=== PATIENT | male | born 1940 | race Caucasian/White ===

== ENCOUNTER 2016-08-09 04:17 | Emergency (ER) | payer MEDICARE ==
[2016-08-09] MEDS ORDERED: ASPIRIN 325 MG TABLET PO ONE (04:27)
[2016-08-09] MEDS ORDERED: MORPHINE SULFATE 5 MG/ML PFS IVP ONE ×3 (04:31→07:13)
--- NOTE | 2016-08-09 04:31 | Emergency Department Record ---
History of Present Illness - General Chief Complaint: Chest Pain Stated Complaint: CHEST PAIN/SOB Time Seen by Provider: 08/09/16 04:25 Source: Patient, Family - History of Present Illness Initial Comments: The patient states he had a pain in his right lower chest last evening around 10:30 p.m. which wasn't very bad. He took tylenol and went to bed. Around 4 a.m. he awakened with worsened pain and was having shortness of breath. He has esophageal cancer, had been getting chemotherapy which was stopped 3 months ago. His reports that they have found 2 more nodules on his lungs for which they will be seeing a lung doctor in the near future. He states the pain worsens with deep breathing. MD Complaint: Chest pain - Related Data Home Medications Medication Instructions Recorded Confirmed Last Taken Cholecalciferol (Vitamin D3) 6,000 unit PO DAILY 08/25/14 08/09/16 02/21/15 [Vitamin D3] Omeprazole [Prilosec] 40 mg PO DAILY 08/25/14 08/09/16 02/11/16 Warfarin Sodium [Coumadin] 5 mg PO QHS 08/25/14 08/09/16 02/10/16 Magnesium Oxide [Mag Ox] 400 mg PO DAILY 01/19/15 08/09/16 02/11/16 Albuterol Sulfate 0.083% [Neb] 3 ml NEB .EVERY 4-6 HOURS PRN 01/25/15 08/09/16 02/21/15 Budesonide/Formoterol Fumarate 6 gm IH DAILY 01/25/15 08/09/16 02/21/15 [Symbicort 160-4.5 Mcg Inhaler] Digoxin [Digox] 250 mcg PO DAILY 01/25/15 08/09/16 02/11/16 Prednisone [Prednisone] 5 mg PO DAILY 03/16/15 08/09/16 02/11/16 Fludrocortisone Acetate 0.1 mg PO DAILY 10/12/15 08/09/16 02/11/16 Polyethylene Glycol 3350 [Miralax] 17 gm PO QAM PRN 10/12/15 08/09/16 02/10/16 Pantoprazole Sodium [Protonix] 40 mg PO DAILY 08/09/16 08/09/16 Unknown Allergies Allergy/AdvReac Type Severity Reaction Status Date / Time No Known Drug Allergies Allergy Verified 02/11/16 10:17 Review of Systems Reviewed: No additional complaints except as noted below Constitutional: Reports: As per HPI. Denies: Chills, Fever, Malaise, Night sweats, Weakness, Weight change Eyes: Reports: As per HPI. Denies: Eye discharge, Eye pain, Photophobia, Vision change ENT: Reports: As per HPI. Denies: Congestion, Dental pain, Ear pain, Epistaxis , Hearing loss, Throat pain Respiratory: Reports: As per HPI. Denies: Cough, Dyspnea, Hemoptysis, Stridor, Wheezes Cardiovascular: Reports: As per HPI. Denies: Arrhythmia, Chest pain, Dyspnea on exertion, Edema, Murmurs, Orthopnea, Palpitations, Paroxysmal nocturnal dyspnea, Rheumatic Fever, Syncope Endocrine: Reports: As per HPI. Denies: Fatigue, Heat or cold intolerance, Polydipsia, Polyuria Gastrointestinal: Reports: As per HPI. Denies: Abdominal pain, Constipation, Diarrhea, Hematemesis, Hematochezia, Melena, Nausea, Vomiting Genitourinary: Reports: As per HPI. Denies: Dysuria, Frequency, Hematuria, Incontinence, Retention, Testicular pain, Testicular mass, Urgency Musculoskeletal: Reports: As per HPI. Denies: Arthralgia, Back pain, Gout, Joint swelling, Myalgia, Neck pain Skin: Reports: As per HPI. Denies: Bruising, Change in color, Change in hair/ nails, Lesions, Pruritus, Rash Neurological: Reports: As per HPI. Denies: Abnormal gait, Confusion, Headache, Numbness, Paresthesias, Seizure, Tingling, Tremors, Vertigo, Weakness Psychiatric: Reports: As per HPI. Denies: Anxiety, Auditory hallucinations, Depression, Homicidal thoughts, Suicidal thoughts, Visual hallucinations Hematological/Lymphatic: Reports: As per HPI. Denies: Anemia, Blood Clots, Easy bleeding, Easy bruising, Swollen glands Past Medical History - SOCIAL HISTORY Smoking Status: Former smoker - RESPIRATORY Hx Respiratory Disorders: Yes Hx Bronchitis: Yes Hx COPD: Yes Hx Dyspnea: Yes Hx Sleep Apnea: No Hx of CPAP: No Comment:: fluid "pocket" on base of left lung - CARDIOVASCULAR Hx Cardio Disorders: Yes Hx Irregular Heartbeat: Yes (afib) Comment:: A-Fib-no problems for several yrs - NEURO Hx Neuro Disorders: No - GI Hx GI Disorders: Yes Hx Abdominal Pain: Yes Hx Reflux: Yes Hx Obstructive Bowel: Yes Hx Wt Loss/Wt Gain: Yes (loss of 140#'s in 3 yrs) Hx of Polyps: Yes Comment:: esophagectomy/weight loss due to chemo - Hx Genitourinary Disorders: Yes Hx Kidney Stones: Yes Hx Prostate Problems: Yes (BPH) - ENDOCRINE Hx Endocrine Disorders: No Hx Diabetes: No - MUSCULOSKELETAL Hx Musculoskeletal Disorders: Yes Hx Arthritis: Yes - PSYCH Hx Psych Problems: No - HEMATOLOGY/ONCOLOGY Hx Hematology/Oncology Disorders: Yes Hx Bruising: Yes (d/t coumadin) 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) Hx Chemotherapy: Yes (None since Feb, 2016) Hx Radiation Therapy: Yes (Ended Apr 2014) Hx Blood Transfusions: Yes Hx Blood Transfusion Reaction: Yes Family Medical History Hx Cancer: Mother Hx Heart Disease: Father, Mother Hx Stroke: Mother Physical Exam - General General Appearance: Alert, Oriented x3, Cooperative, Moderate distress, Other ( cachectic) - Head Head exam: Normal inspection - Eye Eye exam: Normal appearance, PERRL Pupils: Normal accommodation - ENT ENT exam: Normal exam, Mucous membranes moist, Normal external ear exam, Normal orophraynx, TM's normal bilaterally Ear exam: Normal external inspection. negative: External canal tenderness Nasal Exam: Normal inspection. negative: Discharge, Sinus tenderness Mouth exam: Normal external inspection, Tongue normal Teeth exam: Normal inspection. negative: Dental caries Throat exam: Normal inspection. negative: Tonsillar erythema, Tonsillar exudate - Neck Neck exam: Normal inspection, Full ROM. negative: Tenderness - Respiratory Respiratory exam: Normal lung sounds bilaterally, Chest wall tenderness (tender on palpation over lost lateral lowest rib right side and into RUQ abdomen laterally). negative: Respiratory distress - Cardiovascular Cardiovascular Exam: Regular rate, Normal rhythm, Normal heart sounds - GI/Abdominal GI/Abdominal exam: Soft, Normal bowel sounds. negative: Tenderness - Rectal Rectal exam: Deferred - exam: Deferred - Extremities Extremities exam: Normal inspection, Full ROM, Normal capillary refill. negative: Tenderness - Back Back exam: Reports: Normal inspection, Full ROM. Denies: Muscle spasm, Rash noted, Tenderness - Neurological Neurological exam: Alert, Normal gait, Oriented X3, Reflexes normal - Psychiatric Psychiatric exam: Normal affect, Normal mood - Skin Skin exam: Dry, Intact, Normal color, Warm Course - Reevaluation(s) Reevaluation #1: His reports that he had a PET scan on 07-23-16 which showed new lesions on his liver. He had an appointment with his Oncologist Dr. Reeves on 08-03-16 to discuss options of restarting his chemotherapy which he had not had for the past 3 months. [facility] with Dr. Abarca and Dr. Reeves. 08/09/16 04:48 08/09/16 06:52 Reevaluation #2: Morphine is helping take the edge of his right sided chest pain. 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 08/09/16 05:24 Reevaluation #3: Patient returned from cat scan. Second dose of morphine is helping him much more and he is now able to relax more and try to sleep while results are pending. He is now nauseated. Zofran ordered. 08/09/16 06:11 Reevaluation #4: FRANCY Keen at [facility] who accepts patient in transfer for direct admit. Awaiting bed number and completion of transfer. 08/09/16 07:02 Medical Decision Making - Management Options MDM Management: Additional Work-up Planned (e.g. ADM/Transfer/OP Study) ( Transfer to [facility] for direct admit.) - Data Complexity MDM Data: Labs Ordered and/or Reviewed, X-Ray Ordered and/or Reviewed (CTA Chest : No PE. No thoracic aortic aneruysm. Bihilar mediastinal lymphadenopathy and multiple pulmonary nodules in both lungs, consistent with malignancy. Portal vein thrombus without evidence of a complicating process at present. Mild left pleural effusion.), EKG Ordered and/or Reviewed - Lab Data Result diagrams: 08/09/16 04:30 08/09/16 04:30 - EKG Data -: EKG Interpreted by Mo EKG: No Acute Changes (Inferior lateral lead ST-T changes which are not new from 11-29-15) Disposition Disposition: Transfer Clinical Impression: Metastasis from esophageal cancer Atrial fibrillation Qualifiers: Atrial fibrillation type: chronic Qualified Code(s): I48.2 - Chronic atrial fibrillation Disposition: Acute Care Hospital Transfer Decision to Admit: Admit from ER Decision to Admit Date: 08/09/16 Decision to Admit Time: 07:05 [facility] Reason For Transfer: portal thrombus; metastatic esophageal cancer Accepting Physician: Dr. Keen Time Discussed w/Accepting Physician: 07:06 Condition: (2) Stable Forms: Patient Portal Access
[2016-08-09] MEDS ORDERED: ASPIRIN 81 MG CHEWABLE TABLET PO ONE (04:33)
[2016-08-09 04:45] LABS: HEMOGLOBIN 13.6 gm/dl (14.0-18.0); MEAN CELL VOLUME 99.3 fl (81-97); MEAN CORPUSCULAR HEMOGLOBIN 33.7 pg (27-33); MEAN PLATELET VOLUME 8.7 fl (7.4-10.4); PLATELET COUNT 202 K/uL (130-400); RED BLOOD COUNT 4.03 M/uL (4.40-5.70); RED CELL DISTRIBUTION WIDTH 13.4 % (11.5-14.5)
[2016-08-09 04:56] LABS: PARTIAL THROMBOPLASTIN TIME 35.2 SECONDS (24.5-39.1)
[2016-08-09 05:03] LABS: ANION GAP 12.2 (7-16); BLOOD UREA NITROGEN 20 mg/dL (9-20); CARBON DIOXIDE 31.8 mmol/L (22-30); CREATININE 0.9 mg/dL (0.66-1.25); D-DIMER 1.01 mg/L FEU (0-0.59); EST GLOMERULAR FILTRATION RATE > 60 ml/min; GLUCOSE,RANDOM 115 mg/dL (70-110)
[2016-08-09 05:11] LABS: CREATINE PHOSPHOKINASE < 20 U/L (55-170)
[2016-08-09 05:15] LABS: CKMB 0.7 ug/L (0-6); TROPONIN I 0.033 ng/mL (0.00-0.034)
[2016-08-09] MEDS ORDERED: ONDANSETRON HCL IV 4 MG/2 ML VIAL IVP ONE ×2 (06:12→07:46)
[2016-08-09 06:45] LABS: INR 1.26; PROTHROMBIN TIME (PATIENT) 14.2 SECONDS (9.5-12.1)
[2016-08-09] MEDS ORDERED: HEPARIN SODIUM 1000 UNIT/1 ML 10ML VIAL IVP ONE (07:13)
[2016-08-09] MEDS ORDERED: PROMETHAZINE HCL 25 MG/ML VIAL IV ONE (08:30)
--- NOTE | 2016-08-13 09:44 | CT ANGIOGRAM REPORT ---
EXAM: CTA OF THE CHEST WITH CONTRAST HISTORY: ELEVATED D-DIMER, CHEST PAIN, RIGHT RIB AND SHOULDER PAIN. TECHNIQUE: Routine CT angiography images of the chest were obtained following intravenous administration of 100 ml of Omnipaque 350. 3D/MIP images were obtained for further assessment. Comparison: 10/12/15. FINDINGS: There are no central filling defects in the pulmonary arteries to suggest PE. There is ectasia of the ascending aorta measuring 4.0 x 4.0 cm on this non-gated examination. The aorta enhances normally with contrast. Calcified and noncalcified atherosclerotic plaque present. Mild tortuosity. There is a left chest port catheter in place. There is interval enlargement of bilateral hilar lymph nodes measuring 4.0 x 2.3 cm on the right and 2.9 x 2.9 cm on the left. This compares to 1.6 x 0.9 cm and 1.1 x 0.9 cm on previous examination. There is also interval enlargement of a left periesophageal lymph node measuring 2.7 x 2.9 cm today compared to 1.0 x 1.3 cm by my measurement on previous exam. This is consistent with disease progression in this patient with history of esophageal cancer. The patient has undergone previous gastric pull through procedure. The lungs demonstrate mild paraseptal emphysematous change. There is a similar small left pleural effusion. Today compared to 3 mm on previous examination. Interval enlarged nodule within the right lower lobe measuring 10 mm not clearly seen on previous examination. Other interval enlarged nodules are present within both lungs elsewhere. There is interval improved air space disease within the right lung. There is now a hypodense lesion within the posterior segment right lobe of the liver measuring 4.2 x 4.0 cm in size consistent with a metastatic lesion not seen previous examination. Other smaller lesions are present elsewhere within the liver consistent with disease progression. Note is now made of portal venous thrombus. Thrombus appears to extend into the superior mesenteric vein as well. No clearly acute osseous abnormality. IMPRESSION: 1. NO EVIDENCE OF PULMONARY EMBOLUS. 2. THERE IS INTERVAL DISEASE PROGRESSION IN THIS PATIENT WITH HISTORY OF ESOPHAGEAL CANCER. THERE ARE ENLARGED LYMPH NODES WITHIN THE HILUM AND MEDIASTINUM. INTERVAL INCREASED METASTATIC LESIONS WITHIN BOTH LUNGS. INTERVAL INCREASED/DEVELOPMENT OF HEPATIC METASTATIC DISEASE. 3. STABLE LEFT PLEURAL EFFUSION. 4. STABLE BILATERAL RENAL CYSTS. JOB NUMBER: [id number] [facility]
== END 2016-08-09 08:50 | disposition short-term general hospital (02) ==
LOC: ER 04:17
DX: I48.2 Chronic atrial fibrillation (principal); I81 Portal vein thrombosis; R06.02 Shortness of breath; R10.11 Right upper quadrant pain; J44.9 Chronic obstructive pulmonary disease, unspecified; C15.9 Malignant neoplasm of esophagus, unspecified; C78.7 Secondary malignant neoplasm of liver and intrahepatic bile duct; C78.02 Secondary malignant neoplasm of left lung; C78.01 Secondary malignant neoplasm of right lung; R64 Cachexia
CPT/HCPCS: 99285 ×2; 96376; 96374; 96375; 82550; 85730; 85610; 82553; 84484; 80048; 80162; 85379; 85027; 83880; 71275; 93005; 93010; Q9967; J2405; J2270; J2550

== ENCOUNTER 2016-11-23 15:02 | Observation (INO) | payer MEDICARE ==
[2016-11-23] MEDS ORDERED: HYDROMORPHONE HCL 1 MG/ML CPJ IVP ONE (15:34)
[2016-11-23] MEDS ORDERED: ONDANSETRON HCL IV 4 MG/2 ML VIAL IVP ONE ×2 (15:34→17:45)
--- NOTE | 2016-11-23 15:35 | Emergency Department Record ---
History of Present Illness - General Chief Complaint: Fall Injury Stated Complaint: FALL/HEAD INJURY Time Seen by Provider: 11/23/16 15:29 Source: Patient Mode of Arrival: EMS Limitations: No limitations - History of Present Illness Initial Comments: The patient is here due to injuring his back an hour ago. He was bending over pruning some shrubs and felt a very sharp stabbing pain in his back that made him fall. He then fell forward and bumped his head on a metal cart he was using. There was no LOC but the pain in his back was and is very severe. There is no pain radiating down the legs and no leg weakness. He also did not have any incontinence. The patient is on Coumadin. MD Complaint: Fall Onset/Timin -: Minutes(s) Fall From: Standing When Fall Occurred: Just prior to arrival Fall Witnessed: No Place Fall Occurred: Home Loss of Consciousness: None Prolonged Down Time?: No Symptoms Prior to Fall: Other Location: Head Severity: Severe Severity scale (1-10): >10 Quality: Burning Context: Other Associated Symptoms: Other - [place]y Coma Scale Eye Response: (4) Open spontaneously Motor Response: (6) Obeys commands Verbal Response: (5) Oriented [place] Total: 15 - Related Data Home Medications Medication Instructions Recorded Confirmed Last Taken Cholecalciferol (Vitamin D3) 6,000 unit PO DAILY 08/25/14 08/09/16 11/23/16 [Vitamin D3] 0800 Omeprazole [Prilosec] 40 mg PO DAILY 08/25/14 08/09/16 11/23/16 0800 Warfarin Sodium [Coumadin] 5 mg PO QHS 08/25/14 08/09/16 1 Day Ago ~11/22/16 2200 Magnesium Oxide [Mag Ox] 400 mg PO DAILY 01/19/15 08/09/16 11/23/16 0800 Albuterol Sulfate 0.083% [Neb] 3 ml NEB .EVERY 4-6 HOURS PRN 01/25/15 08/09/16 11/23/16 0800 Budesonide/Formoterol Fumarate 6 gm IH DAILY 01/25/15 08/09/16 11/23/16 [Symbicort 160-4.5 Mcg Inhaler] 0800 Digoxin [Digox] 250 mcg PO DAILY 01/25/15 08/09/16 11/23/16 0800 Prednisone [Prednisone] 15 mg PO DAILY 03/16/15 08/09/16 11/23/16 0800 Fludrocortisone Acetate 0.1 mg PO DAILY 10/12/15 08/09/16 11/23/16 0800 Pantoprazole Sodium [Protonix] 40 mg PO DAILY 11/23/16 11/23/16 11/23/16 0800 Allergies Allergy/AdvReac Type Severity Reaction Status Date / Time No Known Drug Allergies Allergy Verified 02/11/16 10:17 Travel Screening - Travel/Exposure Within Last 30 Days Have you traveled within the last 30 days?: No - Travel/Exposure Within Last Year Have you traveled outside the [place] in the last year?: No - Additonal Travel Details Have you been exposed to anyone with a communicable illness?: No Review of Systems Constitutional: Denies: Chills, Fever Eyes: Denies: Eye discharge ENT: Denies: Congestion Respiratory: Denies: Cough, Dyspnea Past Medical History - SOCIAL HISTORY Smoking Status: Former smoker Alcohol Use: None Drug Use: None - RESPIRATORY Hx Respiratory Disorders: Yes Hx Bronchitis: Yes Hx COPD: Yes Hx Dyspnea: Yes Hx Sleep Apnea: No Hx of CPAP: No Comment:: fluid "pocket" on base of left lung - CARDIOVASCULAR Hx Cardio Disorders: Yes Hx Irregular Heartbeat: Yes (afib) Comment:: A-Fib-no problems for several yrs - NEURO Hx Neuro Disorders: No - GI Hx GI Disorders: Yes Hx Abdominal Pain: Yes Hx Reflux: Yes Hx Obstructive Bowel: Yes Hx Wt Loss/Wt Gain: Yes (loss of 140#'s in 3 yrs) Hx of Polyps: Yes Comment:: esophagectomy/weight loss due to chemo - Hx Genitourinary Disorders: Yes Hx Kidney Stones: Yes Hx Prostate Problems: Yes (BPH) - ENDOCRINE Hx Endocrine Disorders: No Hx Diabetes: No - MUSCULOSKELETAL Hx Musculoskeletal Disorders: Yes Hx Arthritis: Yes - PSYCH Hx Psych Problems: No - HEMATOLOGY/ONCOLOGY Hx Hematology/Oncology Disorders: Yes Hx Bruising: Yes (d/t coumadin) 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) Hx Chemotherapy: Yes (None since Feb, 2016) Hx Radiation Therapy: Yes (Ended Apr 2014) Hx Blood Transfusions: Yes Hx Blood Transfusion Reaction: Yes Family Medical History Any Significant Family History?: Yes Hx Cancer: Mother Hx Heart Disease: Father, Mother Hx Stroke: Mother Physical Exam - General General Appearance: Alert, Oriented x3, Cooperative, No acute distress - Head Head exam: Atraumatic, Normocephalic, Normal inspection - Eye Eye exam: Normal appearance, PERRL - Neck Neck exam: Normal inspection, Full ROM. negative: Tenderness (There is no Cspine tenderness. The patient has full ROM with no pain.) - Respiratory Respiratory exam: Normal lung sounds bilaterally. negative: Respiratory distress - Cardiovascular Cardiovascular Exam: Regular rate, Normal rhythm, Normal heart sounds - GI/Abdominal GI/Abdominal exam: Soft, Normal bowel sounds. negative: Tenderness - Extremities Extremities exam: Normal inspection, Full ROM, Normal capillary refill. negative: Tenderness - Back Back exam: Reports: Normal inspection, Muscle spasm, Paraspinal tenderness (The Lower lumbar area is very tender at the L paraspinal L4-5 area. ). Denies: Vertebral tenderness - Neurological Neurological exam: Alert, Oriented X3, Reflexes normal. negative: Motor sensory deficit Course Vital Signs 11/23/16 15:11 Temperature 98.2 F Pulse Rate 52 L Respiratory 18 Rate Blood Pressure 142/101 Pulse Ox 98 - Reevaluation(s) Reevaluation #1: The patient is doing better at this time. He is resting comfortably and has no pain when not moving. He denies any leg numbness or weakness presently. 11/23/16 16:18 Reevaluation #2: The patient is doing better but still cannot stand up due to the pain. He denies any leg numbness or tingling. 11/23/16 17:22 Reevaluation #3: The patient is doing better but is still unable to ambulate. We did get him up with assistance and he was quite nauseated with his legs weak due to the pain. He almost fell from the back pain at one point. Due to that fact I did recommend hospital admission overnight for pain control. I did discuss the case with Dr. Tuttle and he agrees with the plan. 11/23/16 17:51 Medical Decision Making - Data Complexity MDM Data: Labs Ordered and/or Reviewed, X-Ray Ordered and/or Reviewed - Lab Data Result diagrams: 11/23/16 16:15 11/23/16 16:15 - Radiology Data Radiology results: Report reviewed (Head CT: Neg Lumbar xrays: Neg for any acute bony problems.) Disposition Disposition: Admit Clinical Impression: Lumbar paraspinal muscle spasm Disposition: Still a Patient at [facility] Decision to Admit: Admit from ER Decision to Admit Date: 11/23/16 Decision to Admit Time: 17:53 Accepting Physician: Marry Time Discussed w/Accepting Physician: 17:53 Condition: (2) Stable Forms: Patient Portal Access Time of Disposition: 17:53
[2016-11-23 16:24] LABS: HEMATOCRIT 30.1 % (42.0-52.0); HEMOGLOBIN 9.6 gm/dl (14.0-18.0); MEAN CELL VOLUME 101.7 fl (81-97); MEAN CORPUSCULAR HEMOGLOBIN 32.4 pg (27-33); MEAN CORPUSCULAR HGB CONC 31.9 g/dl (32-36); MEAN PLATELET VOLUME 9.2 fl (7.4-10.4); PLATELET COUNT 209 K/uL (130-400); RED BLOOD COUNT 2.96 M/uL (4.40-5.70); RED CELL DISTRIBUTION WIDTH 16.3 % (11.5-14.5); WHITE BLOOD COUNT W/O DIFF 5.4 K/uL (4.2-12.2)
[2016-11-23 16:34] LABS: ANION GAP 4.2 (7-16); BLOOD UREA NITROGEN 18 mg/dL (9-20); CARBON DIOXIDE 30.8 mmol/L (22-30); CREATININE 0.8 mg/dL (0.66-1.25); EST GLOMERULAR FILTRATION RATE > 60 ml/min; GLUCOSE,RANDOM 128 mg/dL (70-110); INR 2.87; PARTIAL THROMBOPLASTIN TIME 40.1 SECONDS (24.5-39.1); PROTHROMBIN TIME (PATIENT) 32.4 SECONDS (9.5-12.1)
[2016-11-23] MEDS ORDERED: KETOROLAC 30 MG/ML VIAL IVP ONE (16:53)
[2016-11-23] MEDS ORDERED: ACETAMINOPHEN 500 MG TABLET PO PRN (18:21)
[2016-11-23] MEDS ORDERED: ONDANSETRON HCL IV 4 MG/2 ML VIAL IVP PRN (18:21)
[2016-11-23] MEDS ORDERED: ALBUTEROL SULFATE (0.083%) 2.5 MG/3 ML NEB INH PRN (18:21)
[2016-11-23] MEDS: HYDROMORPHONE HCL 1 MG/ML CPJ IVP PRN (21:42)
[2016-11-23] MEDS ORDERED: WARFARIN 5 MG TAB PO SCH (22:00)
[2016-11-24] MEDS ORDERED: HYDROCODONE/APAP 5/325MG TABLET PO PRN (04:07)
[2016-11-24] MEDS: PANTOPRAZOLE SODIUM 40 MG TABLET PO SCH ×2 (05:47→07:43)
[2016-11-24] MEDS: HYDROMORPHONE HCL 1 MG/ML CPJ IVP PRN (05:48)
[2016-11-24 06:25] LABS: INR 2.45; PROTHROMBIN TIME (PATIENT) 27.7 SECONDS (9.5-12.1)
--- NOTE | 2016-11-24 07:22 | CT SCAN REPORT ---
EXAM: HEAD CT HISTORY: TRAUMA, PATIENT FELL BACKWARDS ON THE LAWN HITTING HIS HEAD. TECHNIQUE: Axial CT scan of the head was performed without IV contrast. Comparison: None. Encounter: Initial. FINDINGS: No definite acute intracranial hemorrhage identified. No focal mass effect or midline shift apparent. Mild generalized atrophy. No definite acute infarct or intracranial mass lesion is seen. No depressed calvarial fracture is evident. IMPRESSION: 1. NO DEFINITE ACUTE INTRACRANIAL HEMORRHAGE OR FOCAL MASS EFFECT EVIDENT. 2. MILD GENERALIZED ATROPHY. JOB NUMBER: [id number] [facility]
--- NOTE | 2016-11-24 07:29 | RADIOLOGY REPORT ---
EXAM: LUMBAR SPINE HISTORY: PATIENT DEVELOPED A SHARP PAIN IN HIS LOWER BACK WHILE TRIMMING BUSHES. TECHNIQUE: Seven views of the lumbar spine were obtained. Comparison: No prior lumbar spine series. Encounter: Initial. FINDINGS: There is tilting of the spine to the right which may be due to positioning or spasm. Surgical clips right upper quadrant presumably from cholecystectomy. There is some form of fixation like device overlying the lower left lateral ribs and clinical correlation is suggested. This partially obscures the lumbar spine on the RPO view in particular. Numerous short linear metallic densities overlying the pubic symphysis probably represent radiation seeds in the prostate bed and clinical correlation is suggested. Facet joint arthropathy in the lower lumbar spine in particular. Ballooning of the lower lumbar interspaces probably related to osteoporosis. No definite acute fracture of the lumbar spine identified. If lumbar symptoms persist, however, follow-up MRI of the lumbar spine would be suggested if not contraindicated. Borderline aneurysmal dilatation of the distal abdominal aorta measuring about 3 cm in diameter. There is some mild narrowing of the first and second lumbar interspaces with associated hypertrophic spurring. IMPRESSION: 1. OSTEOPOROSIS WITH BALLOONING OF THE LOWER LUMBAR INTERSPACES. 2. DEGENERATIVE CHANGES PARTICULARLY IN THE LOWER LUMBAR FACETS AND MILD NARROWING OF THE UPPER LUMBAR INTERSPACES INCLUDING THE SECOND AND THIRD IN PARTICULAR WITH ASSOCIATED HYPERTROPHIC SPURRING. 3. POSTOPERATIVE CHANGES INCLUDING SURGICAL CLIPS RIGHT UPPER QUADRANT, PROBABLE RADIATION SEEDS IN THE PROSTATE BED, AND LIKELY SOME FORM OF FIXATION DEVICE INVOLVING SOME OF THE LOWER LEFT LATERAL RIBS. JOB NUMBER: [id number] [facility]
--- NOTE | 2016-11-24 07:40 | Discharge Note ---
VTE H&P Assessment - Risk for VTE Risk for VTE: Yes Risk Level: Moderate Risk Assessment Date: 11/23/16 Risk Assessment Time: 19:00 VTE Orders Placed or Will Be Placed: Yes Discharge Medications - Discharge Medications Home Medications: Ambulatory Orders Cholecalciferol (Vitamin D3) [Vitamin D3] 6,000 unit PO DAILY 08/25/14 [Last Taken 11/23/16 0800] Omeprazole [Prilosec] 40 mg PO DAILY 08/25/14 [Last Taken 11/23/16 0800] Warfarin Sodium [Coumadin] 5 mg PO QHS 08/25/14 [Last Taken 1 Day Ago ~11/22/16 2200] Magnesium Oxide [Mag Ox] 400 mg PO DAILY 01/19/15 [Last Taken 11/23/16 0800] Albuterol Sulfate 0.083% [Neb] 3 ml NEB .EVERY 4-6 HOURS PRN 01/25/15 [Last Taken 11/23/16 0800] Budesonide/Formoterol Fumarate [Symbicort 160-4.5 Mcg Inhaler] 6 gm IH DAILY [Last Taken 11/23/16 0800] Digoxin [Digox] 250 mcg PO DAILY 01/25/15 [Last Taken 11/23/16 0800] Prednisone [Prednisone] 15 mg PO DAILY 03/16/15 [Last Taken 11/23/16 0800] Fludrocortisone Acetate 0.1 mg PO DAILY 10/12/15 [Last Taken 11/23/16 0800] Pantoprazole Sodium [Protonix] 40 mg PO DAILY 11/23/16 [Last Taken 11/23/16 0800 ] Discharge Note - Date Date of Discharge Note: 11/24/16 Condition: (2) Stable Forms: Patient Portal Access
--- NOTE | 2016-11-24 07:46 | Discharge Note ---
VTE H&P Assessment - Risk for VTE Risk for VTE: Yes Risk Level: Moderate Risk Assessment Date: 11/23/16 Risk Assessment Time: 19:00 VTE Orders Placed or Will Be Placed: Yes Discharge Medications - Discharge Medications Prescriptions: Hydrocodone/Acetaminophen [[place] 5-325 Tablet] 1 each PO Q6HR PRN #30 tablet PRN Reason: Analgesia Cyclobenzaprine HCl [Flexeril] 5 mg PO TID #30 tab Home Medications: Ambulatory Orders Cholecalciferol (Vitamin D3) [Vitamin D3] 6,000 unit PO DAILY 08/25/14 [Last Taken 11/23/16 0800] Omeprazole [Prilosec] 40 mg PO DAILY 08/25/14 [Last Taken 11/23/16 0800] Warfarin Sodium [Coumadin] 5 mg PO QHS 08/25/14 [Last Taken 1 Day Ago ~11/22/16 2200] Magnesium Oxide [Mag Ox] 400 mg PO DAILY 01/19/15 [Last Taken 11/23/16 0800] Albuterol Sulfate 0.083% [Neb] 3 ml NEB .EVERY 4-6 HOURS PRN 01/25/15 [Last Taken 11/23/16 0800] Budesonide/Formoterol Fumarate [Symbicort 160-4.5 Mcg Inhaler] 6 gm IH DAILY [Last Taken 11/23/16 0800] Digoxin [Digox] 250 mcg PO DAILY 01/25/15 [Last Taken 11/23/16 0800] Prednisone 15 mg PO DAILY 03/16/15 [Last Taken 11/23/16 0800] Fludrocortisone Acetate 0.1 mg PO DAILY 10/12/15 [Last Taken 11/23/16 0800] Pantoprazole Sodium [Protonix] 40 mg PO DAILY 11/23/16 [Last Taken 11/23/16 0800 ] Cyclobenzaprine HCl [Flexeril] 5 mg PO TID #30 tab 11/24/16 [Last Taken Unknown] Hydrocodone/Acetaminophen [[place] 5-325 Tablet] 1 each PO Q6HR PRN #30 tablet [Last Taken Unknown] Discharge Note - Date Date of Discharge Note: 11/24/16 Disposition: Home, Self-Care Condition: (2) Stable Additional Instructions: follow up with Dr. Horan in 3 to 7 days low heat to back three times a day being careful not to burn the skin flexeril three times a day and if to sleepy only take at night will also help the back pain tylenol for mild to moderate pain norco for severe pain Referrals: YUKO HERNANDEZ [Primary Care Provider] - Forms: Patient Portal Access Activity at Discharge: Increase Activity as Tolerated
[2016-11-24] MEDS ORDERED: OMEPRAZOLE 40 MG PO SCH (10:00)
[2016-11-24] MEDS ORDERED: SYMBICORT INH SCH (10:00)
[2016-11-24] MEDS ORDERED: DIGOXIN 125 MCG TABLET PO SCH (10:00)
[2016-11-24] MEDS ORDERED: FLUDROCORTISONE 0.1 MG PO SCH (10:00)
[2016-11-24] MEDS ORDERED: PANTOPRAZOLE SODIUM 40 MG TABLET PO SCH (10:00)
--- NOTE | 2016-11-24 10:58 | History and Physical Report ---
DATE OF EVALUATION: 11/23/2016 DATE OF ADMISSION: 11/23/2016 CHIEF COMPLAINT: Low back pain on the left side, lumbar sacroiliac joint area. HISTORY OF THE PRESENT ILLNESS: This patient was out working in the yard. When he was pruning the shrubs, he felt a very sharp pain in the back on the left side. He fell forward, hitting his head on the cart. No loss of consciousness, but the pain was very severe. He came to the Emergency Department for evaluation. There was no pain radiating down his legs. No leg weakness. He was not incontinent of his urine. The patient is on Coumadin and digoxin. PAST MEDICAL HISTORY: Atrial fibrillation, esophageal cancer, COPD, and GERD. He has had problems with his bowels with obstructions in the past. Polyps. He has had an esophagectomy. He is getting chemotherapy, ongoing, through Dr. Reeves. He has had a kidney stone and benign prostatic hyperplasia. Arthritis. PAST SURGICAL HISTORY: Esophagectomy, tonsils, appendectomy, left knee surgery, and cholecystectomy. MEDICATIONS ON ADMISSION: Coumadin 5 mg at bedtime, prednisone 15 mg daily, Protonix 40 mg daily, omeprazole 40 mg daily, Mag-Ox 400 daily, fludrocortisone acetate 0.1 mg daily, digoxin 0.25 daily, vitamin D3 6000 units daily, Symbicort 160/4.5 one puff b.i.d. (he says daily, but I think it is probably b.i.d.), albuterol nebulizations every 4 hours p.r.n. dyspnea. ALLERGIES: No known drug allergies. FAMILY PSYCHOSOCIAL HISTORY: Unremarkable. He is a former smoker. Quit in 1985. His mother had cancer. His father had heart disease. Mother had heart disease, and mother had a stroke. REVIEW OF SYSTEMS: HEENT: No upper respiratory infection symptoms, cough, cold, or congestion. Cardiovascular: No chest pain, palpitations, or arrhythmias. Respiratory: No shortness of breath, cough, cold, or congestion. Gastrointestinal: No nausea, vomiting, diarrhea, black stools, or bloody stools. Genitourinary: No dysuria, hematuria, frequency, or burning on urination. Musculoskeletal: See Chief Complaint. He has severe low back pain in the left side lumbar sacroiliac joint area. Neurologic: No CVA, paralysis, or paresthesias. Endocrine: No diabetes or thyroid disease. Integument: No rash, ulcers, changes in moles, or yellow skin. PHYSICAL EXAMINATION: VITAL SIGNS: Height is 5 foot 11 inches. Weight is 150 pounds. Temperature 98.2. Pulse 77. Blood pressure 150/86. Respiratory rate 18. Pulse ox 98% on room air. HEENT: Pupils equal, round, and reactive to light and accommodation. Extraocular muscles intact. Throat is clear. Nose is clear. Tympanic membranes pleitez. NECK: Supple. No jugular venous distention. No hepatojugular reflux. No carotid bruits. Thyroid is smooth. CARDIOVASCULAR: Regular rate and rhythm without murmurs, clicks, rubs, or gallops. RESPIRATORY: Clear to auscultation and percussion. ABDOMEN: Soft, nontender, no hepatosplenomegaly. No masses or tenderness. Bowel sounds active. EXTREMITIES: There is pain on palpation of the lumbar spine L5 area S1 area on the left side. No radiation to the legs. BREASTS: Normal male breasts. GENITALIA: Deferred. RECTAL: Deferred. NEUROLOGIC: Cranial nerves II-XII intact. No gross deficits. Sensation normal. Strength normal. Deep tendon reflexes equal bilaterally. Babinski is negative. MENTAL STATUS: Alert and oriented x3. IMPRESSION: 1. Lumbar strain. 2. Pain control. 3. Esophageal cancer. 4. COPD. PLAN: IV Dilaudid 0.5 mg every 4 hours. Tylenol. Toradol every 8 hours. Rest. MTDD
--- NOTE | 2016-11-25 13:21 | Discharge Summary ---
DISCHARGE DIAGNOSES: 1. Lumbar strain. 2. Esophageal cancer. 3. Pain control. It is the reason he was in the hospital. 4. Chronic obstructive pulmonary disease. 5. Gastroesophageal reflux disease. ATTENDING PHYSICIAN: Bernard Tuttle DO REASON FOR HOSPITALIZATION: This 76-year-old was trimming the hedges in his yard when he twisted and severe back spasm happened. He fell down hitting his head slightly on the metal yard cart but no loss of consciousness. He came to the ER for evaluation. His head CT was negative. He is on Coumadin. That is why they erred on the side of getting a CT scan. He had muscle spasm in his lumbar spine. No fractures were seen. Normal lumbar spine x-ray. He was in too much pain to go home. He got very nauseated but he did get a shot of Dilaudid and that seemed to make the nausea much worse. They felt he needed to stay in the hospital. Dr. Choi was in the emergency department and wanted him admitted for pain control. He got another couple shots of Dilaudid in the hospital here and he seemed to get nauseated about an hour after each shot. It appears to be that the narcotic is too difficult for him to tolerate. We will try a low-dose oral [place], maybe start out with half a pill at home or Tylenol for moderate pain. SIGNIFICANT FINDINGS: As stated, the head CT was normal. Lumbar spine x-rays plain films were normal. WBC 5400, hemoglobin 9.6. PT/INR was in the normal range. It was 2.87 and it was 2.45 on discharge. Potassium 3.8, BUN 18, creatinine 0.8. Digoxin 1.4. THERAPY PROVIDED: He was given a couple shots of Dilaudid and bedrest. He is doing much better. I talked to him about the nausea because it seemed to be related to the narcotics rather than the back pain. He is able to stand up at the bedside, standing flexion about 30 degrees. I did do some stretching exercises with his back, OMT muscle energy type lying on his left side. He is feeling better than he was yesterday. CONDITION ON DISCHARGE: Improved. DISCHARGE INSTRUCTIONS: Follow up with Dr. Dioni Pino in 3-7 days. Flexeril 5 mg t.i.d. and if it makes him too sleepy, drop down to once a day at night. [place] 5 mg q.4 h. p.r.n. Intermittent heat to his back but low head because I do not want him to burn his skin. His skin is very thin. Only 10-20 minutes, half an hour at a time but very low heat being cautious not to burn his skin. Prescriptions being sent home are [place] 30 pills 5 mg and Flexeril 5 mg t.i.d. Continue his home medications of Coumadin as directed at home 5 mg at h.s., prednisone 50 mg a day, omeprazole 40 mg daily, Mag-Ox 400 mg daily, fludrocortisone acetate 0.1 mg daily (he has problems retaining water in his system), digoxin 0.25 mg daily, vitamin D 6000 units daily, Symbicort inhaler 160/4.5 one puff b.i.d., albuterol nebulizers q.4 h. p.r.n. CC: Dr. Dioni Wilkinson [facility]
== END 2016-11-24 11:05 | disposition home or self-care (01) ==
LOC: ER 15:02 → MEDSURG 18:11
PROVIDERS: ADMIT Emergency Medicine; ATTEND Emergency Medicine
DX: S39.012A Strain of muscle, fascia and tendon of lower back, initial encounter (principal); S00.93XA Contusion of unspecified part of head, initial encounter; W18.39XA Other fall on same level, initial encounter; Y92.017 Garden or yard in single-family (private) house as the place of occurrence of the external cause; I48.91 Unspecified atrial fibrillation; J44.9 Chronic obstructive pulmonary disease, unspecified; N40.0 Benign prostatic hyperplasia without lower urinary tract symptoms; Z79.01 Long term (current) use of anticoagulants; C80.1 Malignant (primary) neoplasm, unspecified
CPT/HCPCS: 70450; 72110; 80048; 80162; 85027; 85610; 85730; 94640; 96374; 96375; 96376; 99217; 99220; 99285; J1170; J1885; J2405; J7613

== ENCOUNTER 2016-12-06 05:30 | Emergency (ER) | payer MEDICARE ==
[2016-12-06] MEDS ORDERED: 0.9 % SODIUM CHLORIDE 1,000 ML BAG IV ONE (05:59)
[2016-12-06] MEDS ORDERED: MORPHINE SULFATE 5 MG/ML PFS IVP ONE (06:01)
[2016-12-06] MEDS ORDERED: PROMETHAZINE HCL 25 MG/ML VIAL IVP ONE (06:01)
--- NOTE | 2016-12-06 06:13 | Emergency Department Record ---
History of Present Illness - General Chief Complaint: Abdominal Pain Stated Complaint: CONSTIPATION Time Seen by Provider: 12/06/16 05:50 Source: Patient Mode of Arrival: walker Limitations: No limitations - History of Present Illness Initial Comments: pt is c/o abd pain that is severe that waxes and wanes in intensity. he states he has not a bowel movement in 11 days. he has tried daily miralax, stool softener, laxatives with no results. he is on chemo for esophageal cancer. he has a hx of a volvulus last year. no n/v. pt has been on pain med for recent back pain. MD Complaint: Abdominal pain Onset/Timin -: Days(s) Location: LLQ, RLQ Radiation: None Migration to: No migration Severity: Moderate Quality: Other Consistency: Constant Improves With: Nothing Worsens With: Nothing Associated Symptoms: Constipation - Related Data Home Medications Medication Instructions Recorded Confirmed Last Taken Cholecalciferol (Vitamin D3) 6,000 unit PO DAILY 08/25/14 11/23/16 11/23/16 [Vitamin D3] 0800 Omeprazole [Prilosec] 40 mg PO DAILY 08/25/14 11/23/16 11/23/16 0800 Warfarin Sodium [Coumadin] 5 mg PO QHS 08/25/14 11/23/16 1 Day Ago ~11/22/16 2200 Magnesium Oxide [Mag Ox] 400 mg PO DAILY 01/19/15 11/23/16 11/23/16 0800 Albuterol Sulfate 0.083% [Neb] 3 ml NEB .EVERY 4-6 HOURS PRN 01/25/15 11/23/16 11/23/16 0800 Budesonide/Formoterol Fumarate 6 gm IH DAILY 01/25/15 11/23/16 11/23/16 [Symbicort 160-4.5 Mcg Inhaler] 0800 Digoxin [Digox] 250 mcg PO DAILY 01/25/15 11/23/16 11/23/16 0800 Prednisone 15 mg PO DAILY 03/16/15 11/23/16 11/23/16 0800 Fludrocortisone Acetate 0.1 mg PO DAILY 10/12/15 11/23/16 11/23/16 0800 Pantoprazole Sodium [Protonix] 40 mg PO DAILY 11/23/16 11/23/16 11/23/16 0800 Previous Rx's Medication Instructions Recorded Cyclobenzaprine HCl [Flexeril] 5 mg PO TID #30 tab 11/24/16 Hydrocodone/Acetaminophen [[place] 1 each PO Q6HR PRN #30 tablet 11/24/16 5-325 Tablet] Allergies Allergy/AdvReac Type Severity Reaction Status Date / Time No Known Drug Allergies Allergy Verified 02/11/16 10:17 Travel Screening - Travel/Exposure Within Last 30 Days Have you traveled within the last 30 days?: No - Travel/Exposure Within Last Year Have you traveled outside the [place] in the last year?: No - Additonal Travel Details Have you been exposed to anyone with a communicable illness?: No - Travel Symptoms Symptom Screening: None Review of Systems Reviewed: No additional complaints except as noted below Constitutional: Reports: As per HPI, Weakness. Denies: Chills, Fever, Malaise, Night sweats, Weight change Eyes: Reports: As per HPI. Denies: Eye discharge, Eye pain, Photophobia, Vision change ENT: Reports: As per HPI, Throat pain. Denies: Congestion, Dental pain, Ear pain, Epistaxis, Hearing loss Respiratory: Reports: As per HPI. Denies: Cough, Dyspnea, Hemoptysis, Stridor, Wheezes Cardiovascular: Reports: As per HPI. Denies: Arrhythmia, Chest pain, Dyspnea on exertion, Edema, Murmurs, Orthopnea, Palpitations, Paroxysmal nocturnal dyspnea, Rheumatic Fever, Syncope Endocrine: Reports: As per HPI. Denies: Fatigue, Heat or cold intolerance, Polydipsia, Polyuria Gastrointestinal: Reports: As per HPI, Abdominal pain, Constipation. Denies: Diarrhea, Hematemesis, Hematochezia, Melena, Nausea, Vomiting Genitourinary: Reports: As per HPI. Denies: Dysuria, Frequency, Hematuria, Incontinence, Retention, Testicular pain, Testicular mass, Urgency Musculoskeletal: Reports: As per HPI. Denies: Arthralgia, Back pain, Gout, Joint swelling, Myalgia, Neck pain Skin: Reports: As per HPI. Denies: Bruising, Change in color, Change in hair/ nails, Lesions, Pruritus, Rash Neurological: Reports: As per HPI. Denies: Abnormal gait, Confusion, Headache, Numbness, Paresthesias, Seizure, Tingling, Tremors, Vertigo, Weakness Psychiatric: Reports: As per HPI. Denies: Anxiety, Auditory hallucinations, Depression, Homicidal thoughts, Suicidal thoughts, Visual hallucinations Hematological/Lymphatic: Reports: As per HPI. Denies: Anemia, Blood Clots, Easy bleeding, Easy bruising, Swollen glands Past Medical History - SOCIAL HISTORY Smoking Status: Former smoker Alcohol Use: None Drug Use: None - RESPIRATORY Hx Respiratory Disorders: Yes Hx Bronchitis: Yes Hx COPD: Yes Hx Dyspnea: Yes Hx Sleep Apnea: No Hx of CPAP: No Comment:: fluid "pocket" on base of left lung - CARDIOVASCULAR Hx Cardio Disorders: Yes Hx Irregular Heartbeat: Yes (afib) Comment:: A-Fib-no problems for several yrs - NEURO Hx Neuro Disorders: No - GI Hx GI Disorders: Yes Hx Abdominal Pain: Yes Hx Reflux: Yes Hx Obstructive Bowel: Yes Hx Wt Loss/Wt Gain: Yes (loss of 140#'s in 3 yrs) Hx of Polyps: Yes Comment:: esophagectomy/weight loss due to chemo - Hx Genitourinary Disorders: Yes Hx Kidney Stones: Yes Hx Prostate Problems: Yes (BPH) - ENDOCRINE Hx Endocrine Disorders: No Hx Diabetes: No - MUSCULOSKELETAL Hx Musculoskeletal Disorders: Yes Hx Arthritis: Yes - PSYCH Hx Psych Problems: No - HEMATOLOGY/ONCOLOGY Hx Hematology/Oncology Disorders: Yes Hx Bruising: Yes (d/t coumadin) 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) Hx Chemotherapy: Yes (None since Feb, 2016) Hx Radiation Therapy: Yes (Ended Apr 2014) Hx Blood Transfusions: Yes Hx Blood Transfusion Reaction: Yes Family Medical History Any Significant Family History?: No Hx Cancer: Mother Hx Heart Disease: Father, Mother Hx Stroke: Mother Physical Exam - General General Appearance: Alert, Oriented x3, Cooperative, Moderate distress - Head Head exam: Normal inspection - Eye Eye exam: Normal appearance, PERRL, EOMI Pupils: Normal accommodation - ENT ENT exam: Normal exam, Mucous membranes moist, Normal external ear exam, Normal orophraynx Ear exam: Normal external inspection. negative: External canal tenderness Nasal Exam: Normal inspection. negative: Discharge, Sinus tenderness Mouth exam: Normal external inspection, Tongue normal Teeth exam: Normal inspection. negative: Dental caries Throat exam: Normal inspection. negative: Tonsillar erythema, Tonsillar exudate - Neck Neck exam: Normal inspection, Full ROM. negative: Tenderness - Respiratory Respiratory exam: Normal lung sounds bilaterally. negative: Respiratory distress - Cardiovascular Cardiovascular Exam: Regular rate, Normal rhythm, Normal heart sounds - GI/Abdominal GI/Abdominal exam: Soft, Normal bowel sounds, Tenderness - Rectal Rectal exam: Deferred - exam: Deferred - Extremities Extremities exam: Normal inspection, Full ROM, Normal capillary refill. negative: Tenderness - Back Back exam: Reports: Normal inspection, Full ROM. Denies: Muscle spasm, Rash noted, Tenderness - Neurological Neurological exam: Alert, CN II-XII intact, Normal gait, Oriented X3 - Psychiatric Psychiatric exam: Normal affect, Normal mood - Skin Skin exam: Dry, Intact, Normal color, Warm Course Vital Signs 12/06/16 05:35 Temperature 97.9 F Pulse Rate 89 Respiratory 24 Rate Blood Pressure 136/91 Pulse Ox 98 - Reevaluation(s) Reevaluation #1: 12/06/16 07:15 care being assumed by dr [email or web address] Medical Decision Making - Management Options MDM Management: Additional Work-up Planned (e.g. ADM/Transfer/OP Study) - Data Complexity MDM Data: Labs Ordered and/or Reviewed, X-Ray Ordered and/or Reviewed - Lab Data Result diagrams: 12/06/16 06:05 12/06/16 06:05 - Radiology Data Radiology results: Report reviewed, Image reviewed Disposition Forms: Patient Portal Access
[2016-12-06 06:18] LABS: HEMATOCRIT 33.6 % (42.0-52.0); HEMOGLOBIN 10.9 gm/dl (14.0-18.0); MEAN CELL VOLUME 101.2 fl (81-97); MEAN CORPUSCULAR HEMOGLOBIN 32.8 pg (27-33); MEAN CORPUSCULAR HGB CONC 32.4 g/dl (32-36); MEAN PLATELET VOLUME 8.8 fl (7.4-10.4); PLATELET COUNT 239 K/uL (130-400); RED BLOOD COUNT 3.32 M/uL (4.40-5.70); RED CELL DISTRIBUTION WIDTH 16.6 % (11.5-14.5); WHITE BLOOD COUNT W/O DIFF 7.5 K/uL (4.2-12.2)
[2016-12-06 06:33] LABS: ALKALINE PHOSPHATASE 136 U/L (38-126); ALT/SGPT 28 U/L (21-72); ANION GAP 2.2 (7-16); AST/SGOT 19 U/L (17-59); BILIRUBIN,TOTAL 0.71 mg/dL (0.2-1.3); BLOOD UREA NITROGEN 15 mg/dL (9-20); CARBON DIOXIDE 34.8 mmol/L (22-30); CREATININE 0.8 mg/dL (0.66-1.25); EST GLOMERULAR FILTRATION RATE > 60 ml/min; GLUCOSE,RANDOM 84 mg/dL (70-110); LIPASE 10 U/L (23-300); TOTAL PROTEIN 5.8 gm/dL (6.3-8.2)
[2016-12-06 06:37] LABS: ANISOCYTOSIS 1+; PLATELET ESTIMATE NORMAL (NORMAL)
[2016-12-06] MEDS ORDERED: ACETAMINOPHEN 1,000 MG/100 ML BTL IVPB ONE (07:15)
[2016-12-06] MEDS ORDERED: POTASSIUM CHL 20MEQ IN 1L NS 20 MEQ/1,000 ML BAG IV ONE (07:20)
--- NOTE | 2016-12-06 07:29 | Emergency Department Record ---
History of Present Illness - General Chief Complaint: Abdominal Pain Stated Complaint: CONSTIPATION Time Seen by Provider: 12/06/16 05:50 Source: Patient, Family Mode of Arrival: walker Limitations: No limitations - History of Present Illness Initial Comments: 76 yo male presents with abdominal pain and minimal bowel movements for about 1.5 weeks. He is eating and drinking. He is urinating normally. No vomiting. He was recently on [place] for a back injury. He has been taking stool softeners and Miralax. About one year ago he was diagnosed with a volvulus that spontaneously resolved. No pain similar to that experience recently. He is passing gas but small stools only. He stopped the [place] 3 days prior. The case was turned over by Dr Reyes at 07:00 The labs were reviewed. No acute changes. Lactic Acid 1.1 Dr Reyes ordered a CT scan of the abdomen and pelvis that is pending. MD Complaint: Abdominal pain Onset/Timin -: Days(s) Location: LLQ, RLQ Radiation: None Migration to: No migration Severity: Moderate Quality: Other Consistency: Constant Improves With: Nothing Worsens With: Nothing Associated Symptoms: Constipation - Related Data Home Medications Medication Instructions Recorded Confirmed Last Taken Cholecalciferol (Vitamin D3) 6,000 unit PO DAILY 08/25/14 11/23/16 11/23/16 [Vitamin D3] 0800 Omeprazole [Prilosec] 40 mg PO DAILY 08/25/14 11/23/16 11/23/16 0800 Warfarin Sodium [Coumadin] 5 mg PO QHS 08/25/14 11/23/16 1 Day Ago ~11/22/16 2200 Magnesium Oxide [Mag Ox] 400 mg PO DAILY 01/19/15 11/23/16 11/23/16 0800 Albuterol Sulfate 0.083% [Neb] 3 ml NEB .EVERY 4-6 HOURS PRN 01/25/15 11/23/16 11/23/16 0800 Budesonide/Formoterol Fumarate 6 gm IH DAILY 01/25/15 11/23/16 11/23/16 [Symbicort 160-4.5 Mcg Inhaler] 0800 Digoxin [Digox] 250 mcg PO DAILY 01/25/15 11/23/16 11/23/16 0800 Prednisone 15 mg PO DAILY 03/16/15 11/23/16 11/23/16 0800 Fludrocortisone Acetate 0.1 mg PO DAILY 10/12/15 11/23/16 11/23/16 0800 Pantoprazole Sodium [Protonix] 40 mg PO DAILY 11/23/16 11/23/16 11/23/16 0800 Previous Rx's Medication Instructions Recorded Cyclobenzaprine HCl [Flexeril] 5 mg PO TID #30 tab 11/24/16 Hydrocodone/Acetaminophen [[place] 1 each PO Q6HR PRN #30 tablet 11/24/16 5-325 Tablet] Allergies Allergy/AdvReac Type Severity Reaction Status Date / Time No Known Drug Allergies Allergy Verified 02/11/16 10:17 Travel Screening - Travel/Exposure Within Last 30 Days Have you traveled within the last 30 days?: No - Travel/Exposure Within Last Year Have you traveled outside the [place] in the last year?: No - Additonal Travel Details Have you been exposed to anyone with a communicable illness?: No - Travel Symptoms Symptom Screening: None Review of Systems Constitutional: Reports: As per HPI, Weakness. Denies: Chills, Fever, Malaise, Night sweats, Weight change Eyes: Reports: As per HPI. Denies: Eye discharge, Eye pain, Photophobia, Vision change ENT: Reports: As per HPI, Throat pain. Denies: Congestion, Dental pain, Ear pain, Epistaxis, Hearing loss Respiratory: Reports: As per HPI. Denies: Cough, Dyspnea, Hemoptysis, Stridor, Wheezes Cardiovascular: Reports: As per HPI. Denies: Arrhythmia, Chest pain, Dyspnea on exertion, Edema, Murmurs, Orthopnea, Palpitations, Paroxysmal nocturnal dyspnea, Rheumatic Fever, Syncope Endocrine: Reports: As per HPI. Denies: Fatigue, Heat or cold intolerance, Polydipsia, Polyuria Gastrointestinal: Reports: As per HPI, Abdominal pain, Constipation. Denies: Diarrhea, Hematemesis, Hematochezia, Melena, Nausea, Vomiting Genitourinary: Reports: As per HPI. Denies: Dysuria, Frequency, Hematuria, Incontinence, Retention, Testicular pain, Testicular mass, Urgency Musculoskeletal: Reports: As per HPI. Denies: Arthralgia, Back pain, Gout, Joint swelling, Myalgia, Neck pain Skin: Reports: As per HPI. Denies: Bruising, Change in color, Change in hair/ nails, Lesions, Pruritus, Rash Neurological: Reports: As per HPI. Denies: Abnormal gait, Confusion, Headache, Numbness, Paresthesias, Seizure, Tingling, Tremors, Vertigo, Weakness Psychiatric: Reports: As per HPI. Denies: Anxiety, Auditory hallucinations, Depression, Homicidal thoughts, Suicidal thoughts, Visual hallucinations Hematological/Lymphatic: Reports: As per HPI. Denies: Anemia, Blood Clots, Easy bleeding, Easy bruising, Swollen glands Past Medical History - SOCIAL HISTORY Smoking Status: Former smoker Alcohol Use: None Drug Use: None - RESPIRATORY Hx Respiratory Disorders: Yes Hx Bronchitis: Yes Hx COPD: Yes Hx Dyspnea: Yes Hx Sleep Apnea: No Hx of CPAP: No Comment:: fluid "pocket" on base of left lung - CARDIOVASCULAR Hx Cardio Disorders: Yes Hx Irregular Heartbeat: Yes (afib) Comment:: A-Fib-no problems for several yrs - NEURO Hx Neuro Disorders: No - GI Hx GI Disorders: Yes Hx Abdominal Pain: Yes Hx Reflux: Yes Hx Obstructive Bowel: Yes Hx Wt Loss/Wt Gain: Yes (loss of 140#'s in 3 yrs) Hx of Polyps: Yes Comment:: esophagectomy/weight loss due to chemo - Hx Genitourinary Disorders: Yes Hx Kidney Stones: Yes Hx Prostate Problems: Yes (BPH) - ENDOCRINE Hx Endocrine Disorders: No Hx Diabetes: No - MUSCULOSKELETAL Hx Musculoskeletal Disorders: Yes Hx Arthritis: Yes - PSYCH Hx Psych Problems: No - HEMATOLOGY/ONCOLOGY Hx Hematology/Oncology Disorders: Yes Hx Bruising: Yes (d/t coumadin) 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) Hx Chemotherapy: Yes (None since Feb, 2016) Hx Radiation Therapy: Yes (Ended Apr 2014) Hx Blood Transfusions: Yes Hx Blood Transfusion Reaction: Yes Family Medical History Any Significant Family History?: No Hx Cancer: Mother Hx Heart Disease: Father, Mother Hx Stroke: Mother Physical Exam - General General Appearance: Alert, Oriented x3 Limitations: No limitations - Head Head exam: Normal inspection - Eye Eye exam: Normal appearance - ENT ENT exam: Normal exam - Neck Neck exam: Normal inspection - Respiratory Respiratory exam: Normal lung sounds bilaterally - Cardiovascular Cardiovascular Exam: Regular rate, Normal rhythm, Normal heart sounds - GI/Abdominal GI/Abdominal exam: Soft, Normal bowel sounds, Diminished bowel sounds. negative : Distended, Guarding, Hernia, Rebound, Rigid, Tenderness - Rectal Rectal exam: Fecal impaction, Heme (-) stool, Normal inspection, Normal rectal tone. negative: Hemorrhoids, Mass, Prostate tenderness, Tenderness - Extremities Extremities exam: Normal inspection - Neurological Neurological exam: Alert, Oriented X3 - Psychiatric Psychiatric exam: Normal affect, Normal mood - Skin Skin exam: Dry, Intact, Normal color, Warm Course Vital Signs 12/06/16 12/06/16 05:35 05:59 Temperature 97.9 F Pulse Rate 89 Pulse Rate [ 94 H Pulse Ox Probe] Respiratory 24 20 Rate Blood Pressure 136/91 Blood Pressure 129/94 [Left Arm] Pulse Ox 98 96 - Reevaluation(s) Reevaluation #1: The CT scan was reviewed. The findings include possible metastatic disease of his known cancer. He has an abundance of stool consistent with fecal impaction. NO obstruction. Small bowel intussescepton noted and may be incidental and transient per the radiologist. 12/06/16 09:31 A rectal examination was performed. He has a soft nadiya like stool filling the rectal vault. A MOM enema was given. The patient has some initial moderate stool. He will be re-evaluated 12/06/16 09:47 Reevaluation #2: On re-examination his abdomen is very relaxed and soft. He reports significant improvement of symptoms. He has a few mild cramps that come and go. He will be re-evaluated again after additional observation. 12/06/16 09:51 Reevaluation #3: The patient is doing very well at this time. No pain. No nausea. After the enema and bowel movement the prior pressure has been relieved. I repeated a rectal examination to ensure the fecal impaction was resolved. I was unable to palpate any stool in the rectum indicating a good evacuation of stools. I did discuss the incidental SB findings with the radiologist. It is likely incidental and not pathologic from normal SB peristalsis with no sign of obstruction. The abdomen is very soft and non tender We discussed home care, close follow up including returning to the ED for a recheck anytime if pain, nausea or vomiting I encouraged fluids, no narcotics, and Miralax as directed 12/06/16 10:34 Medical Decision Making - Lab Data Result diagrams: 12/06/16 06:05 12/06/16 06:05 Lab Results 12/06/16 12/06/1617 Range/Units 06:05 06:05 06:05 WBC 7.5 (4.2-12.2) K/uL RBC 3.32 L (4.40-5.70) M/uL Hgb 10.9 L (14.0-18.0) gm/dl Hct 33.6 L (42.0-52.0) % MCV 101.2 H (81-97) fl MCH 32.8 (27-33) pg MCHC 32.4 (32-36) g/dl RDW 16.6 H (11.5-14.5) % Plt Count 239 (130-400) K/uL MPV 8.8 (7.4-10.4) fl Neutrophils % 81.0 H (47-80) % Eosinophils % Not Reportable Basophils % Not Reportable Lymphocytes 16.0 (16-45) % Monocytes 3.0 (0-9) % Platelet Estimate Normal (NORMAL) Anisocytosis 1+ Macrocytosis 1+ Sodium 136 (136-145) mmol/L Potassium 3.3 L (3.5-5.1) mmol/L Chloride 99 (98-107) mmol/L Carbon Dioxide 34.8 H (22-30) mmol/L Anion Gap 2.2 L (7-16) BUN 15 (9-20) mg/dL Creatinine 0.8 (0.66-1.25) mg/dL Estimated GFR > 60 ml/min Random Glucose 84 (70-110) mg/dL Lactic Acid 1.1 (0.7-2.1) mmol/L Calcium 8.4 L (8.5-10.1) mg/dL Total Bilirubin 0.71 (0.2-1.3) mg/dL Direct Bilirubin 0.0 (0-0.3) mg/dL AST 19 (17-59) U/L ALT 28 (21-72) U/L Alkaline Phosphatase 136 H (38-126) U/L Total Protein 5.8 L (6.3-8.2) gm/dL Albumin 3.0 L (3.5-5.0) gm/dL Lipase 10 L (23-300) U/L Disposition Disposition: Discharge Clinical Impression: Constipation Qualifiers: Constipation type: unspecified constipation type Qualified Code(s): K59.00 - Constipation, unspecified Disposition: Home, Self-Care Condition: (1) Good Instructions: Constipation (ED) Additional Instructions: Return immediately if you have fever, pain, vomiting or any concerns Please call or return if you have any concerns or questions Stay well hydrated Take Miralax twice daily as directed. Call [phone] and ask for Medical Records to have your CT scan report sent to your doctors and reviewed in the office Forms: Patient Portal Access Time of Disposition: 10:41
[2016-12-06 07:52] LABS: URINE APPEARANCE CLEAR; URINE BILIRUBIN NEGATIVE (NEGATIVE); URINE BLOOD NEGATIVE (NEGATIVE); URINE COLOR YELLOW; URINE GLUCOSE (UA) NEGATIVE (NEGATIVE); URINE KETONE NEGATIVE (NEGATIVE); URINE LEUKOCYTE ESTERASE NEGATIVE (NEGATIVE); URINE NITRITE NEGATIVE (NEGATIVE); URINE PROTEIN NEGATIVE (NEGATIVE)
[2016-12-06 07:53] LABS: INR 1.38; PROTHROMBIN TIME (PATIENT) 15.6 SECONDS (9.5-12.1)
--- NOTE | 2016-12-08 14:00 | CT SCAN REPORT ---
EXAM: CT OF THE ABDOMEN AND PELVIS HISTORY: CONSTIPATION. TECHNIQUE: CT of the abdomen and pelvis was performed following the IV administration of 100 ml of Omnipaque 300 contrast. Oral contrast was also utilized. Comparison: Prior CT from 11/29/15. FINDINGS: Limited evaluation of the lung bases redemonstrates a complex left pleural fluid collection. Wall thickening of the distal esophagus is again suggested. There is a stable 5 mm nodule in the left lung base. This has a more ground glass appearance on today's exam. Pleural thickening with a somewhat nodule appearance in each lung base. The osseous structures are grossly intact. New from the prior exam are two hypodensities in the inferior right hepatic lobe. One of these measures 1.7 x 1.3 cm and the other 1.6 x 1.1 cm. Post surgical changes in the epigastric region. The spleen, adrenal glands , and pancreas are unremarkable. Status post cholecystectomy. Bilateral renal cysts. The kidneys are otherwise grossly unremarkable. Moderate atheromatous change. No evidence for bowel obstruction, however, there is evidence of small bowel intussusception in the left mid abdomen. This likely relates to typical transient type intussusception. No definitive etiology for the area of intussusception, however, continued follow-up is recommended. Abundant stool in the colon. There is no free air. There is a large amount of stool in the rectal vault. Multiple prostate seeds are present. No retroperitoneal or mesenteric adenopathy. IMPRESSION: 1. CHRONIC LEFT PLEURAL FLUID COLLECTION WITH ADJACENT NODULAR PLEURAL THICKENING. 2. SMALL HIATAL HERNIA. NOT STATED PREVIOUSLY, A NEW AREA OF SOFT TISSUE DENSITY IN THE LEFT PARAESOPHAGEAL REGION MEASURING 1.9 X 1.9 CM IS PRESENT. THIS IS SUSPICIOUS FOR ADENOPATHY. FOLLOW-UP RECOMMENDED. 3. THERE ARE TWO NEW HYPODENSITIES IN THE INFERIOR RIGHT HEPATIC LOBE. MALIGNANCY CANNOT BE EXCLUDED. CONSIDER FURTHER NONEMERGENT ASSESSMENT WITH MULTIPHASIC MRI. 4. SMALL BOWEL INTUSSUSCEPTION IN THE LEFT MID ABDOMEN. NO SURROUNDING INFLAMMATION OR EVIDENCE FOR OBSTRUCTION. CONTINUED FOLLOW-UP RECOMMENDED. 5. LARGE AMOUNT OF STOOL IN THE COLON AND RECTAL VAULT. 6. NOT STATED PREVIOUSLY, THERE IS A RIGHT INGUINAL HERNIA CONTAINING A SMALL AMOUNT OF FAT AND FLUID, UNCHANGED. 7. ALSO NOT STATED PREVIOUSLY, THERE IS A NEW SCLEROTIC LESION OF THE ANTERIOR L5 VERTEBRAL BODY WORRISOME FOR METASTATIC DISEASE MEASURING 2.0 X 1.5 CM. JOB NUMBER: [id number] MTDD
== END 2016-12-06 11:15 | disposition home or self-care (01) ==
LOC: ER 05:30
DX: K59.00 Constipation, unspecified (principal); R10.84 Generalized abdominal pain; M54.2 Cervicalgia; J44.9 Chronic obstructive pulmonary disease, unspecified; I48.91 Unspecified atrial fibrillation; C15.9 Malignant neoplasm of esophagus, unspecified; Z79.01 Long term (current) use of anticoagulants; Z87.891 Personal history of nicotine dependence
CPT/HCPCS: 99284 ×2; 96374; 96375; 83605; 83690; 85610; 80076; 80048; 81003; 85027; 74177; Q9967; J2270; J2550; J7030

== ENCOUNTER 2016-12-07 06:53 | Emergency (ER) | payer MEDICARE ==
[2016-12-07] MEDS ORDERED: 0.9 % SODIUM CHLORIDE 1,000 ML BAG IV ONE (07:09)
[2016-12-07] MEDS ORDERED: MORPHINE SULFATE 5 MG/ML PFS IVP ONE (07:10)
[2016-12-07] MEDS ORDERED: ACETAMINOPHEN 1,000 MG/100 ML BTL IVPB ONE (07:10)
--- NOTE | 2016-12-07 07:14 | Emergency Department Record ---
History of Present Illness - General Chief Complaint: Abdominal Pain Stated Complaint: CONSTIPATION Time Seen by Provider: 12/07/16 07:09 Source: Patient, Family Mode of Arrival: Ambulatory Limitations: No limitations - History of Present Illness Initial Comments: 76 yo male presents to the ER after being seen yesterday in the ED for 11 days without a bowel movement. He was given an enema in the ED and had a large bowel movement yesterday and felt much improved. He continued his Miralax at home but has not had another bowel movement. During the night his pain returned. No vomiting. No fever. In 2016 he was diagnosed with a volvulus. MD Complaint: Abdominal pain Onset/Timin -: Hour(s) Location: RLQ Radiation: Back Migration to: Periumbilical Severity: Moderate Quality: Other Consistency: Constant, Getting worse Improves With: Nothing Worsens With: Eating Associated Symptoms: Anorexia, Constipation - Related Data Home Medications Medication Instructions Recorded Confirmed Last Taken Cholecalciferol (Vitamin D3) 6,000 unit PO DAILY 08/25/14 12/07/16 12/05/16 [Vitamin D3] Omeprazole [Prilosec] 40 mg PO DAILY 08/25/14 12/07/16 12/05/16 Warfarin Sodium [Coumadin] 5 mg PO QHS 08/25/14 12/07/16 12/05/16 Magnesium Oxide [Mag Ox] 400 mg PO DAILY 01/19/15 12/07/16 12/05/16 Albuterol Sulfate 0.083% [Neb] 3 ml NEB .EVERY 4-6 HOURS PRN 01/25/15 12/07/16 12/05/16 Budesonide/Formoterol Fumarate 6 gm IH DAILY 01/25/15 12/07/16 12/05/16 [Symbicort 160-4.5 Mcg Inhaler] Digoxin [Digox] 250 mcg PO DAILY 01/25/15 12/07/16 12/05/16 Prednisone 15 mg PO DAILY 03/16/15 12/07/16 12/05/16 Fludrocortisone Acetate 0.1 mg PO DAILY 10/12/15 12/07/16 12/05/16 Pantoprazole Sodium [Protonix] 40 mg PO DAILY 11/23/16 12/07/16 12/05/16 Previous Rx's Medication Instructions Recorded Cyclobenzaprine HCl [Flexeril] 5 mg PO TID #30 tab 11/24/16 Hydrocodone/Acetaminophen [[place] 1 each PO Q6HR PRN #30 tablet 11/24/16 5-325 Tablet] Allergies Allergy/AdvReac Type Severity Reaction Status Date / Time No Known Drug Allergies Allergy Verified 02/11/16 10:17 Travel Screening - Travel/Exposure Within Last 30 Days Have you traveled within the last 30 days?: No - Travel/Exposure Within Last Year Have you traveled outside the [place] in the last year?: No - Additonal Travel Details Have you been exposed to anyone with a communicable illness?: No - Travel Symptoms Symptom Screening: None Review of Systems Constitutional: Denies: Chills, Fever, Weakness Eyes: Denies: Eye discharge ENT: Denies: Congestion, Throat pain Respiratory: Denies: Cough, Dyspnea, Hemoptysis, Stridor, Wheezes Cardiovascular: Denies: Chest pain, Palpitations, Syncope Endocrine: Denies: Fatigue Gastrointestinal: Reports: Abdominal pain, Constipation, Nausea. Denies: Diarrhea, Hematemesis, Hematochezia, Vomiting Genitourinary: Denies: Dysuria, Frequency Musculoskeletal: Denies: Arthralgia, Back pain Skin: Denies: Bruising, Change in color, Pruritus Neurological: Denies: Headache Psychiatric: Denies: Anxiety Hematological/Lymphatic: Denies: Blood Clots, Easy bleeding, Easy bruising, Swollen glands Past Medical History - SOCIAL HISTORY Smoking Status: Former smoker - RESPIRATORY Hx Respiratory Disorders: Yes Hx Bronchitis: Yes Hx COPD: Yes Hx Dyspnea: Yes Hx Sleep Apnea: No Hx of CPAP: No Comment:: fluid "pocket" on base of left lung - CARDIOVASCULAR Hx Cardio Disorders: Yes Hx Irregular Heartbeat: Yes (afib) Comment:: A-Fib-no problems for several yrs - NEURO Hx Neuro Disorders: No - GI Hx GI Disorders: Yes Hx Abdominal Pain: Yes Hx Reflux: Yes Hx Obstructive Bowel: Yes Hx Wt Loss/Wt Gain: Yes (loss of 140#'s in 3 yrs) Hx of Polyps: Yes Comment:: esophagectomy/weight loss due to chemo - Hx Genitourinary Disorders: Yes Hx Kidney Stones: Yes Hx Prostate Problems: Yes (BPH) - ENDOCRINE Hx Endocrine Disorders: No Hx Diabetes: No - MUSCULOSKELETAL Hx Musculoskeletal Disorders: Yes Hx Arthritis: Yes - PSYCH Hx Psych Problems: No - HEMATOLOGY/ONCOLOGY Hx Hematology/Oncology Disorders: Yes Hx Bruising: Yes (d/t coumadin) 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) Hx Chemotherapy: Yes (None since Feb, 2016) Hx Radiation Therapy: Yes (Ended Apr 2014) Hx Blood Transfusions: Yes Hx Blood Transfusion Reaction: Yes Family Medical History Any Significant Family History?: No Hx Cancer: Mother Hx Heart Disease: Father, Mother Hx Stroke: Mother Physical Exam - General General Appearance: Alert, Oriented x3, Cooperative, No acute distress Limitations: No limitations - Head Head exam: Normal inspection - Eye Eye exam: Normal appearance, PERRL. negative: Conjunctival injection, Periorbital swelling - ENT ENT exam: Normal exam Ear exam: Normal external inspection Nasal Exam: Normal inspection Mouth exam: Normal external inspection Teeth exam: Normal inspection Throat exam: Normal inspection - Neck Neck exam: Normal inspection, Full ROM. negative: Tenderness - Respiratory Respiratory exam: Normal lung sounds bilaterally. negative: Respiratory distress - Cardiovascular Cardiovascular Exam: Regular rate, Normal rhythm, Normal heart sounds - GI/Abdominal GI/Abdominal exam: Soft, Tenderness (mild tenderness, soft abdomen at this time) . negative: Distended, Guarding, Rigid - Rectal Rectal exam: Deferred - exam: Deferred - Extremities Extremities exam: Normal inspection, Full ROM, Normal capillary refill. negative: Tenderness - Back Back exam: Reports: Normal inspection, Full ROM. Denies: Muscle spasm, Rash noted, Tenderness - Neurological Neurological exam: Alert, Normal gait, Oriented X3 - Psychiatric Psychiatric exam: Normal affect, Normal mood - Skin Skin exam: Dry, Intact, Normal color, Warm Course Vital Signs 12/07/16 07:02 Temperature 97.5 F L Pulse Rate [ 90 Pulse Ox Probe] Respiratory 16 Rate Blood Pressure 129/96 [Left Arm] Pulse Ox 96 - Reevaluation(s) Reevaluation #1: The labs were reviewed. No acute changes. Lactic acid is normal. The AAS demonstrates few AFL and abundance of stool in colon He has a large fecal burden on rectal examination with likely recurrent fecal impaction MOM enema ordered. Abdomen remains very soft. 12/07/16 08:04 The patient received the MOM and had and extremely large bowel movement. NO blood. He feels a little shaky now and will be reassessed shortly. 12/07/16 08:33 Reevaluation #2: The patient continues to do well after the very large bowel movement. He is thirsty. PO challenge will be performed. 12/07/16 09:54 Reevaluation #3: The patient continues to feel greatly improved. He has a few waves of feeling like he has more stool to pass. He is tolerating PO fluids well. The initial eneam was only partly given so I discussed considering repeating the enema and monitoring for results. 12/07/16 10:54 Reevaluation #4: The patient had another large stool. He continues to feel relief with each bowel movement 12/07/16 11:33 Reevaluation #5: 12/07/16 13:02 The patient continues to feel greatly improved. he has had 2 large bowel movements today with resolution of symptoms. He will be DC home will instructions for continued bowel program and reasons to return to the ED Medical Decision Making - Lab Data Result diagrams: 12/07/16 07:20 12/07/16 07:20 Disposition Disposition: Discharge Clinical Impression: Constipation Qualifiers: Constipation type: unspecified constipation type Qualified Code(s): K59.00 - Constipation, unspecified Disposition: Home, Self-Care Condition: (1) Good Instructions: Abdominal Pain (ED), Constipation (ED) Additional Instructions: Return immediately if you have concerns about your bowel movements, constipation , abdominal pain or any new concerns Call your doctor tomorrow for close followup Forms: Patient Portal Access Time of Disposition: 13:06
[2016-12-07 07:46] LABS: HEMATOCRIT 36.3 % (42.0-52.0); HEMOGLOBIN 11.8 gm/dl (14.0-18.0); MEAN CELL VOLUME 101.1 fl (81-97); MEAN CORPUSCULAR HGB CONC 32.5 g/dl (32-36); MEAN PLATELET VOLUME 8.8 fl (7.4-10.4); PLATELET COUNT 243 K/uL (130-400); RED BLOOD COUNT 3.59 M/uL (4.40-5.70); WHITE BLOOD COUNT W/O DIFF 7.3 K/uL (4.2-12.2)
[2016-12-07 07:47] LABS: MEAN CORPUSCULAR HEMOGLOBIN 32.8 pg (27-33)
[2016-12-07 07:55] LABS: LACTIC ACID 1.1 mmol/L (0.7-2.1)
[2016-12-07 07:59] LABS: ALB/GLOB RATIO 1.1 (1.1-1.8); ALBUMIN 3.2 gm/dL (3.5-5.0); BLOOD UREA NITROGEN 13 mg/dL (9-20); CREATININE 0.8 mg/dL (0.66-1.25); EST GLOMERULAR FILTRATION RATE > 60 ml/min; GLUCOSE,RANDOM 88 mg/dL (70-110); TOTAL PROTEIN 6.2 gm/dL (6.3-8.2)
[2016-12-07 08:00] LABS: ALKALINE PHOSPHATASE 168 U/L (38-126); ALT/SGPT 28 U/L (21-72); AST/SGOT 22 U/L (17-59); LIPASE 11 U/L (23-300)
[2016-12-07 08:04] LABS: ANISOCYTOSIS 1+; PLATELET ESTIMATE NORMAL (NORMAL)
--- NOTE | 2016-12-08 14:04 | RADIOLOGY REPORT ---
EXAM: ACUTE ABDOMEN SERIES HISTORY: PAIN. TECHNIQUE: An upright view of the chest and supine and erect views of the abdomen were obtained. Comparison: Chest x-ray from 11/16/07. FINDINGS: The heart size is normal. Atheromatous change of the thoracic aorta. [id number] catheter in place. Osteopenia. Underlying emphysema. Small left effusion. No pneumothorax. No free air under the hemidiaphragms. The bowel gas pattern is nonspecific. Prostate seeds are noted. Osteopenia. Post surgical changes associated with multiple left ribs. Moderate stool in the colon. Air fluid levels may relate to mild ileus. No free air. IMPRESSION: 1. SMALL LEFT PLEURAL EFFUSION. UNDERLYING EMPHYSEMA. 2. POSSIBLE MILD ILEUS. ABUNDANT STOOL IN THE COLON. JOB NUMBER: [id number] MTDD
== END 2016-12-07 13:21 | disposition home or self-care (01) ==
LOC: ER 06:53
DX: K59.00 Constipation, unspecified (principal); R10.31 Right lower quadrant pain; I48.91 Unspecified atrial fibrillation; J44.9 Chronic obstructive pulmonary disease, unspecified; Z79.01 Long term (current) use of anticoagulants; Z87.891 Personal history of nicotine dependence; C15.9 Malignant neoplasm of esophagus, unspecified
CPT/HCPCS: 99284 ×2; 96374; 96375; 83605; 83690; 80053; 85027; 74022; J2270; J7030

== ENCOUNTER 2016-12-14 03:14 | Emergency (ER) | payer MEDICARE ==
--- NOTE | 2016-12-14 03:51 | Emergency Department Record ---
History of Present Illness - General Chief Complaint: Shortness of breath Stated Complaint: CONSTIPATION Time Seen by Provider: 12/14/16 03:17 Source: Patient Mode of Arrival: Ambulatory Limitations: No limitations - History of Present Illness Initial Comments: 76 yo male returns to ED with a CC of abdominal pain symptoms and constipation for the past 6 days. Patient was seen in ED for similar symptoms 1 week ago (, 12/07) for constipation symptoms and improved with enemas from the ED. Patient saw his oncologist 12/08 and was started on Lactulose in addition to Miralax daily without improvement of his symptoms. Patient reports a history of esophageal cancer currently undergoing treatment with chemo but has been to ill to receive treatments since before the . Patient's SO reports that the patient eats very small meals following his esophageal surgery 3 years ago. Patient denies nausea/vomiting symptoms, denies fevers/chills. Patient does reports SOB tonight as well ambulating to the ED, reports history of chronic rate controlled atrial fibrillation. MD Complaint: Shortness of breath Onset/Timin -: Days(s) Severity scale (1-10): 5 Consistency: Constant Improves With: Nothing Worsens With: Exertion Associated Symptoms: Abdominal pain - Related Data Home Medications Medication Instructions Recorded Confirmed Last Taken Cholecalciferol (Vitamin D3) 6,000 unit PO DAILY 08/25/14 12/14/16 12/13/16 [Vitamin D3] Omeprazole [Prilosec] 40 mg PO DAILY 08/25/14 12/14/16 12/13/16 Warfarin Sodium [Coumadin] 5 mg PO QHS 08/25/14 12/14/16 12/13/16 Magnesium Oxide [Mag Ox] 400 mg PO DAILY 01/19/15 12/14/16 12/13/16 Albuterol Sulfate 0.083% [Neb] 3 ml NEB .EVERY 4-6 HOURS PRN 01/25/15 12/14/16 12/13/16 Budesonide/Formoterol Fumarate 6 gm IH DAILY 01/25/15 12/14/16 12/13/16 [Symbicort 160-4.5 Mcg Inhaler] Digoxin [Digox] 250 mcg PO DAILY 01/25/15 12/14/16 12/13/16 Fludrocortisone Acetate 0.1 mg PO DAILY 10/12/15 12/14/1612/13/17 Pantoprazole Sodium [Protonix] 40 mg PO DAILY 11/23/16 12/14/16 12/13/16 Lactulose 10 gm PO DAILY 12/14/16 12/14/16 12/13/16 Polyethylene Glycol 3350 [Miralax] 1 packet PO DAILY 12/14/16 12/14/16 Unknown Allergies Allergy/AdvReac Type Severity Reaction Status Date / Time No Known Drug Allergies Allergy Verified 02/11/16 10:17 Travel Screening - Travel/Exposure Within Last 30 Days Have you traveled within the last 30 days?: No - Travel Symptoms Symptom Screening: None Review of Systems Constitutional: Denies: Chills, Fever, Malaise, Night sweats Eyes: Denies: Eye discharge, Eye pain ENT: Denies: Congestion, Ear pain Respiratory: Reports: Dyspnea. Denies: Cough Cardiovascular: Reports: Dyspnea on exertion. Denies: Chest pain, Syncope Endocrine: Denies: Fatigue, Heat or cold intolerance Gastrointestinal: Reports: Abdominal pain, Constipation. Denies: Nausea, Vomiting Genitourinary: Denies: Incontinence, Retention Musculoskeletal: Denies: Arthralgia, Back pain, Gout, Joint swelling Skin: Denies: Bruising, Change in color Neurological: Denies: Abnormal gait, Confusion, Headache, Seizure Psychiatric: Denies: Anxiety Hematological/Lymphatic: Reports: Easy bleeding, Easy bruising. Denies: Anemia , Blood Clots Past Medical History - SOCIAL HISTORY Smoking Status: Former smoker - RESPIRATORY Hx Respiratory Disorders: Yes Hx Bronchitis: Yes Hx COPD: Yes Hx Dyspnea: Yes Hx Sleep Apnea: No Hx of CPAP: No Comment:: fluid "pocket" on base of left lung - CARDIOVASCULAR Hx Cardio Disorders: Yes Hx Irregular Heartbeat: Yes (afib) Comment:: A-Fib-no problems for several yrs - NEURO Hx Neuro Disorders: No - GI Hx GI Disorders: Yes Hx Abdominal Pain: Yes Hx Reflux: Yes Hx Obstructive Bowel: Yes Hx Wt Loss/Wt Gain: Yes (loss of 140#'s in 3 yrs) Hx of Polyps: Yes Comment:: esophagectomy/weight loss due to chemo - Hx Genitourinary Disorders: Yes Hx Kidney Stones: Yes Hx Prostate Problems: Yes (BPH) - ENDOCRINE Hx Endocrine Disorders: No Hx Diabetes: No - MUSCULOSKELETAL Hx Musculoskeletal Disorders: Yes Hx Arthritis: Yes - PSYCH Hx Psych Problems: No - HEMATOLOGY/ONCOLOGY Hx Hematology/Oncology Disorders: Yes Hx Bruising: Yes (d/t coumadin) 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) Hx Chemotherapy: Yes (None since Feb, 2016) Hx Radiation Therapy: Yes (Ended Apr 2014) Hx Blood Transfusions: Yes Hx Blood Transfusion Reaction: Yes Family Medical History Any Significant Family History?: Yes Hx Cancer: Mother Hx Heart Disease: Father, Mother Hx Stroke: Mother Physical Exam - General General Appearance: Alert, Oriented x3, Cooperative, Mild distress, Other ( patient is cachetic appearing on examination) Limitations: No limitations - Head Head exam: Atraumatic, Normocephalic, Normal inspection Head exam detail: negative: Abrasion, Contusion, Ch's sign, General tenderness, Hematoma, Laceration - Eye Eye exam: Normal appearance. negative: Conjunctival injection, Periorbital swelling, Periorbital tenderness, Scleral icterus - ENT Ear exam: negative: Auricular hematoma, Auricular trauma Nasal Exam: negative: Active bleeding, Discharge, Dried blood, Foreign body Mouth exam: negative: Drooling, Laceration, Muffled voice, Tongue elevation - Neck Neck exam: Normal inspection. negative: Meningismus, Tenderness - Respiratory Respiratory exam: Decreased breath sounds (Left upper/lower lung shaw). negative: Rales, Respiratory distress, Rhonchi, Stridor - Cardiovascular Cardiovascular Exam: Irregular rhythm - GI/Abdominal GI/Abdominal exam: Soft, Tenderness (Mild TTP LLQ, cachetic appearing, no rebound or guarding present). negative: Rebound, Rigid - Rectal Rectal exam: Deferred - exam: Deferred - Extremities Extremities exam: negative: Calf tenderness, Pedal edema, Tenderness - Back Back exam: Denies: CVA tenderness (R), CVA tenderness (L) - Neurological Neurological exam: Alert, Normal gait, Oriented X3 - Psychiatric Psychiatric exam: Normal affect, Normal mood - Skin Skin exam: Pallor. 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 Reevaluation #4: 12/14/16 04:15 Labs reviewed, Hgb 11.1, INR 1.78, Digoxin 1.20. Tropon 0.021. Labs are otherwise grossly unremarkable for an acute process. Patient was updated on all results, will initiate transfer for further evaluation. Reevaluation #5: 12/14/16 04:22 Case was discussed with Dr. Smallwood, will accept transfer. Medical Decision Making - Lab Data Result diagrams: 12/14/16 03:45 12/14/16 03:45 Disposition Disposition: Transfer Clinical Impression: Pleural effusion Constipation Qualifiers: Constipation type: unspecified constipation type Qualified Code(s): K59.00 - Constipation, unspecified Atrial fibrillation Qualifiers: Atrial fibrillation type: chronic Qualified Code(s): I48.2 - Chronic atrial fibrillation Disposition: Acute Care Hospital Transfer Transfer To: [facility] Reason For Transfer: Worsening pleural effusion, atrial fibrillatrion, esophageal cancer Accepting Physician: Selin Time Discussed w/Accepting Physician: 04:23 Condition: (2) Stable Forms: Patient Portal Access Time of Disposition: 04:23
[2016-12-14 03:52] LABS: BASO % 0.1 % (0-6); EOS % 0.4 % (0-6); GRAN % 79.5 % (47-80); HEMATOCRIT 33.8 % (42.0-52.0); HEMOGLOBIN 11.1 gm/dl (14.0-18.0); LYMPH % 12.6 % (16-45); MEAN CORPUSCULAR HEMOGLOBIN 32.8 pg (27-33); MEAN CORPUSCULAR HGB CONC 32.8 g/dl (32-36); MEAN PLATELET VOLUME 8.5 fl (7.4-10.4); MONO % 7.4 % (0-9); PLATELET COUNT 235 K/uL (130-400); RED BLOOD COUNT 3.38 M/uL (4.40-5.70); RED CELL DISTRIBUTION WIDTH 16.2 % (11.5-14.5); WHITE BLOOD COUNT W/O DIFF 7.1 K/uL (4.2-12.2)
[2016-12-14 04:01] LABS: INR 1.78; PROTHROMBIN TIME (PATIENT) 20.1 SECONDS (9.5-12.1)
[2016-12-14 04:03] LABS: ALB/GLOB RATIO 1.1 (1.1-1.8); ALBUMIN 3.1 gm/dL (3.5-5.0); ALKALINE PHOSPHATASE 147 U/L (38-126); ALT/SGPT 26 U/L (21-72); ANION GAP 2.6 (7-16); AST/SGOT 16 U/L (17-59); BILIRUBIN,TOTAL 0.62 mg/dL (0.2-1.3); BLOOD UREA NITROGEN 16 mg/dL (9-20); CARBON DIOXIDE 35.4 mmol/L (22-30); CREATININE 0.8 mg/dL (0.66-1.25); EST GLOMERULAR FILTRATION RATE > 60 ml/min; GLUCOSE,RANDOM 100 mg/dL (70-110)
[2016-12-14 04:04] LABS: CREATINE PHOSPHOKINASE < 20 U/L (55-170)
[2016-12-14 04:14] LABS: CKMB 0.5 ug/L (0-6); TROPONIN I 0.021 ng/mL (0.00-0.034)
[2016-12-14] MEDS: IBUPROFEN 400 MG TABLET PO ONE (05:57)
[2016-12-14] MEDS: IBUPROFEN 100 MG/5 ML SUSP PO ONE (06:13)
--- NOTE | 2016-12-15 16:41 | RADIOLOGY REPORT ---
EXAM: ABDOMEN, ACUTE SERIES HISTORY: PAIN. TECHNIQUE: Upright chest with supine and erect views of the abdomen. COMPARISON: 12/07/16 abdominal series. FINDINGS: The heart size is stable. Prominence of the hilar regions bilaterally. [id number] catheter in place. Osteopenia. Small left pleural effusion with left apical pleural thickening. No pneumothorax. No free air under hemidiaphragms. The bowel gas pattern is nonspecific. No free air. Abundant stool in the colon. Stable postsurgical change. IMPRESSION: 1. STABLE FULLNESS IN THE HILAR REGIONS. SMALL PLEURAL EFFUSION. 2. NONSPECIFIC BOWEL GAS PATTERN. ABUNDANT STOOL IN THE COLON. JOB NUMBER: [id number] MTDD
== END 2016-12-14 07:05 | disposition short-term general hospital (02) ==
LOC: ER 03:14
DX: J90 Pleural effusion, not elsewhere classified (principal); C15.9 Malignant neoplasm of esophagus, unspecified; K59.00 Constipation, unspecified; I48.0 Paroxysmal atrial fibrillation; Z79.01 Long term (current) use of anticoagulants
CPT/HCPCS: 74022; 80053; 80162; 82550; 82553; 84484; 85025; 85610; 93005; 93010; 94760; 99285

== ENCOUNTER 2017-01-18 18:05 | Emergency (ER) | payer MEDICARE ==
--- NOTE | 2017-01-18 18:35 | Emergency Department Record ---
History of Present Illness - General Chief Complaint: Abdominal Pain Stated Complaint: ADB PAIN Time Seen by Provider: 01/18/17 18:30 Source: Patient Mode of Arrival: Wheelchair Limitations: No limitations - History of Present Illness Initial Comments: 76 yo male returns to ED for evaluation of constipation which has been chronic for several years. Patient has been taking both Miralax and Lactulose without improvement in his constipation symptoms. Patient reports mild, diffuse pain and that his last BM was 4 days ago. Patient was recently admitted to [facility] for SBO and pleural effusion which was drained but resulted in pneumothorax. Patient reports that his pneumothorax has resolved following repeat CXR last week. Patient denies fevers, chills, or vomiting symptoms. MD Complaint: Abdominal pain Onset/Timin -: Days(s) Location: Diffuse Radiation: None Migration to: No migration Severity: Moderate Quality: Cramping Consistency: Intermittent Improves With: Nothing Worsens With: Nothing Associated Symptoms: Nausea - Related Data Home Medications Medication Instructions Recorded Confirmed Last Taken Cholecalciferol (Vitamin D3) 6,000 unit PO DAILY 08/25/14 01/18/17 12/13/16 [Vitamin D3] Omeprazole [Prilosec] 40 mg PO DAILY 08/25/14 01/18/17 12/13/16 Warfarin Sodium [Coumadin] 5 mg PO QHS 08/25/14 01/18/17 12/13/16 Albuterol Sulfate 0.083% [Neb] 3 ml NEB .EVERY 4-6 HOURS PRN 01/25/15 01/18/17 12/13/16 Budesonide/Formoterol Fumarate 6 gm IH DAILY 01/25/15 01/18/17 12/13/16 [Symbicort 160-4.5 Mcg Inhaler] Digoxin [Digox] 250 mcg PO DAILY 01/25/15 01/18/17 12/13/16 Fludrocortisone Acetate 0.1 mg PO DAILY 10/12/15 01/18/17 12/13/16 Pantoprazole Sodium [Protonix] 40 mg PO DAILY 11/23/16 01/18/17 12/13/16 Lactulose 10 gm PO DAILY 12/14/16 01/18/17 01/18/17 Polyethylene Glycol 3350 [Miralax] 1 packet PO DAILY 12/14/16 01/18/17 01/18/17 Previous Rx's Medication Instructions Recorded Magnesium Citrate 295 ml PO DAILY PRN #15 bottle 01/18/17 Allergies Allergy/AdvReac Type Severity Reaction Status Date / Time No Known Drug Allergies Allergy Verified 01/18/17 18:11 Travel Screening - Travel/Exposure Within Last 30 Days Have you traveled within the last 30 days?: No Review of Systems Constitutional: Denies: Chills, Fever, Malaise, Night sweats Eyes: Denies: Eye discharge, Eye pain ENT: Denies: Congestion, Ear pain, Epistaxis Respiratory: Denies: Cough, Dyspnea Cardiovascular: Denies: Chest pain, Dyspnea on exertion Endocrine: Denies: Fatigue, Heat or cold intolerance Gastrointestinal: Reports: Abdominal pain, Constipation, Nausea. Denies: Vomiting Genitourinary: Denies: Incontinence, Retention Musculoskeletal: Denies: Arthralgia, Back pain, Gout, Joint swelling Skin: Denies: Bruising, Change in color Neurological: Denies: Abnormal gait, Confusion, Headache, Tingling Psychiatric: Denies: Anxiety Hematological/Lymphatic: Denies: Anemia, Blood Clots Past Medical History - SOCIAL HISTORY Smoking Status: Former smoker Alcohol Use: None Drug Use: None - RESPIRATORY Hx Respiratory Disorders: Yes Hx Bronchitis: Yes Hx COPD: Yes Hx Dyspnea: Yes Hx Sleep Apnea: No Hx of CPAP: No Comment:: fluid "pocket" on base of left lung - CARDIOVASCULAR Hx Cardio Disorders: Yes Hx Irregular Heartbeat: Yes (afib) Comment:: A-Fib-no problems for several yrs - NEURO Hx Neuro Disorders: No - GI Hx GI Disorders: Yes Hx Abdominal Pain: Yes Hx Reflux: Yes Hx Obstructive Bowel: Yes Hx Wt Loss/Wt Gain: Yes Hx of Polyps: Yes Comment:: esophagectomy/weight loss due to chemo - Hx Genitourinary Disorders: Yes Hx Kidney Stones: Yes Hx Prostate Problems: Yes (BPH) - ENDOCRINE Hx Endocrine Disorders: No - MUSCULOSKELETAL Hx Musculoskeletal Disorders: Yes Hx Arthritis: Yes - PSYCH Hx Psych Problems: No - HEMATOLOGY/ONCOLOGY Hx Hematology/Oncology Disorders: Yes Hx Bruising: Yes (d/t coumadin) 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) Hx Chemotherapy: Yes (October 29, 2015) Hx Radiation Therapy: Yes (Ended Apr 2014) Hx Blood Transfusions: Yes Hx Blood Transfusion Reaction: Yes Family Medical History Any Significant Family History?: Yes Hx Cancer: Mother Hx Heart Disease: Father, Mother Hx Stroke: Mother Physical Exam - General General Appearance: Alert, Oriented x3, Cooperative, Mild distress, Other ( cachetic appearing on examination) Limitations: No limitations - Head Head exam: Atraumatic, Normocephalic, Normal inspection Head exam detail: negative: Abrasion, Contusion, Ch's sign, General tenderness, Hematoma, Laceration - Eye Eye exam: Normal appearance. negative: Conjunctival injection, Periorbital swelling, Periorbital tenderness, Scleral icterus - ENT Ear exam: negative: Auricular hematoma, Auricular trauma Nasal Exam: negative: Active bleeding, Discharge, Dried blood, Foreign body Mouth exam: negative: Drooling, Laceration, Muffled voice, Tongue elevation - Neck Neck exam: Normal inspection. negative: Meningismus, Tenderness - Respiratory Respiratory exam: Normal lung sounds bilaterally. negative: Rhonchi, Stridor, Wheezes - Cardiovascular Cardiovascular Exam: Regular rate, Normal rhythm, Normal heart sounds - GI/Abdominal GI/Abdominal exam: Soft, Tenderness, Other (Mild, diffuse TTP on examination). negative: Pulsatile mass, Rebound, Rigid - Rectal Rectal exam: Deferred - exam: Deferred - Extremities Extremities exam: Normal inspection. negative: Pedal edema, Tenderness - Back Back exam: Denies: CVA tenderness (R), CVA tenderness (L) - Neurological Neurological exam: Alert, Oriented X3. negative: Motor sensory deficit - Psychiatric Psychiatric exam: Normal affect, Normal mood - Skin Skin exam: Pallor Type of lesion: negative: abrasion Course Vital Signs 01/18/17 18:12 Temperature 97.6 F Pulse Rate 103 H Respiratory 28 H Rate Blood Pressure 133/83 Pulse Ox 96 - Reevaluation(s) Reevaluation #1: 01/18/17 19:13 Labs reviewed, Hgb 10.5 (11.1 previously), Glucose 292. Labs are otherwise grossly unremarkable for an acute process. AAS: Pleural effusion left, findings c/w constipation. Radiographs reviewed, will attempt fleets enema for constipation symptoms in the ED and re-evaluate. Reevaluation #2: 01/18/17 21:25 Patient has had (1) small and (1) large BM in the ED, reports that he is feeling much better and appears stable for discharge at this time. Medical Decision Making - Lab Data Result diagrams: 01/18/17 18:30 01/18/17 18:30 Disposition Disposition: Discharge Clinical Impression: Constipation Qualifiers: Constipation type: unspecified constipation type Qualified Code(s): K59.00 - Constipation, unspecified Disposition: Home, Self-Care Condition: (2) Stable Instructions: Constipation (ED) Additional Instructions: Return to ED if your symptoms worsen or if you have any concerns. Magnesium Citrate as directed. Follow-up with your family doctor in 3-5 days as directed. Prescriptions: Magnesium Citrate 295 ml PO DAILY PRN #15 bottle PRN Reason: Constipation Forms: Patient Portal Access Time of Disposition: 21:26 Quality - Quality Measures Quality Measures: N/A - Blood Pressure Screening Blood Pressure Classification: Hypertensive Reading Systolic Measurement: 144 Diastolic Measurement: 98 Screening for High Blood Pressure: < First Hypertensive BP, F/U Documented > [ G8950] First Hypertensive Follow-up Interventions: Referral to alternative/primary care provider.
[2017-01-18 18:39] LABS: HEMATOCRIT 33.1 % (42.0-52.0); HEMOGLOBIN 10.5 gm/dl (14.0-18.0); MEAN CELL VOLUME 102.5 fl (81-97); MEAN CORPUSCULAR HEMOGLOBIN 32.5 pg (27-33); MEAN CORPUSCULAR HGB CONC 31.7 g/dl (32-36); MEAN PLATELET VOLUME 8.8 fl (7.4-10.4); PLATELET COUNT 223 K/uL (130-400); RED BLOOD COUNT 3.23 M/uL (4.40-5.70); RED CELL DISTRIBUTION WIDTH 15.7 % (11.5-14.5); WHITE BLOOD COUNT W/O DIFF 7.2 K/uL (4.2-12.2)
[2017-01-18] MEDS ORDERED: ONDANSETRON HCL IV 4 MG/2 ML VIAL IVP ONE (18:41)
[2017-01-18] MEDS ORDERED: 0.9 % SODIUM CHLORIDE 1000ML 1,000 ML IV SCH (18:45)
[2017-01-18 18:51] LABS: ALB/GLOB RATIO 1.1 (1.1-1.8); ALBUMIN 3.1 gm/dL (3.5-5.0); ALKALINE PHOSPHATASE 133 U/L (38-126); ALT/SGPT 26 U/L (21-72); ANION GAP 9.6 (7-16); AST/SGOT 20 U/L (17-59); BILIRUBIN,TOTAL 0.76 mg/dL (0.2-1.3); BLOOD UREA NITROGEN 20 mg/dL (9-20); CARBON DIOXIDE 29.4 mmol/L (22-30); CREATININE 0.9 mg/dL (0.66-1.25); EST GLOMERULAR FILTRATION RATE > 60 ml/min; GLUCOSE,RANDOM 292 mg/dL (70-110); PLATELET ESTIMATE NORMAL (NORMAL); TOTAL PROTEIN 5.9 gm/dL (6.3-8.2)
[2017-01-18] MEDS ORDERED: MAGNESIUM CITRATE 296 ML BTL PO ONE (20:04)
--- NOTE | 2017-01-19 15:32 | RADIOLOGY REPORT ---
EXAM: ABDOMEN, ACUTE SERIES HISTORY: TWO NIGHTS AGO STARTED HAVING LOWER ABDOMINAL PAIN WITH NAUSEA. COMPARISON: CT of the chest, 08/09/2016. Abdomen and pelvis CT, 12/06/2016. TECHNIQUE: Acute abdominal series. FINDINGS: Left side chest port present. Volume loss on the left. Persistent lung nodule in the left base measuring 10 mm. Blunting of the left costophrenic angle consistent with small effusion. Right lung is clear. Cardiac silhouette is not enlarged. There is a nodule at the right apex measuring 8 mm. Several additional lung nodules better seen on prior CT of the chest. No free air. Abundant fecal material in the colon and rectum. Small amount of gas throughout nondistended small bowel. Fixation plate overlies lower left rib cage. No suspicious calcification. IMPRESSION: 1. NONOBSTRUCTIVE BOWEL GAS PATTERN WITH NO FREE AIR. CONSTIPATION. 2. VOLUME LOSS ON THE LEFT WITH MULTIPLE PULMONARY NODULES AND SMALL LEFT PLEURAL EFFUSION NOTED ON PRIOR CT OF THE CHEST. SEE THAT DICTATION FOR FURTHER DETAILS. JOB NUMBER: [id number] MTDD
== END 2017-01-18 21:43 | disposition home or self-care (01) ==
LOC: ER 18:05
DX: K59.00 Constipation, unspecified (principal); R10.84 Generalized abdominal pain; R11.0 Nausea; I48.91 Unspecified atrial fibrillation; Z87.891 Personal history of nicotine dependence
CPT/HCPCS: 99284 ×2; 96374; 83690; 80053; 85027; 74022; J2405; J7030

== ENCOUNTER 2017-02-17 03:58 | Observation (INO) | payer MEDICARE ==
[2017-02-17] MEDS ORDERED: MORPHINE SULFATE 5 MG/ML PFS IVP ONE ×2 (04:24→05:58)
[2017-02-17] MEDS ORDERED: ASPIRIN 81 MG CHEWABLE TABLET PO ONE (04:24)
[2017-02-17] MEDS ORDERED: IPRATROPIUM/ALBUTEROL (0.5MG/3MG) NEB INH ONE (04:26)
[2017-02-17 04:33] LABS: BASO % 0.1 % (0-6); EOS % 0.5 % (0-6); GRAN % 80.1 % (47-80); HEMATOCRIT 31.6 % (42.0-52.0); HEMOGLOBIN 9.9 gm/dl (14.0-18.0); LYMPH % 12.7 % (16-45); MEAN CELL VOLUME 100.6 fl (81-97); MEAN CORPUSCULAR HEMOGLOBIN 31.5 pg (27-33); MEAN CORPUSCULAR HGB CONC 31.3 g/dl (32-36); MEAN PLATELET VOLUME 8.6 fl (7.4-10.4); MONO % 6.6 % (0-9); PLATELET COUNT 240 K/uL (130-400); RED BLOOD COUNT 3.14 M/uL (4.40-5.70); RED CELL DISTRIBUTION WIDTH 16.2 % (11.5-14.5); WHITE BLOOD COUNT W/O DIFF 8.4 K/uL (4.2-12.2)
--- NOTE | 2017-02-17 04:33 | Emergency Department Record ---
History of Present Illness - General Chief Complaint: Shortness of breath Stated Complaint: THERESA Time Seen by Provider: 02/17/17 04:15 Source: Patient, Family Mode of Arrival: Ambulatory Limitations: No limitations - History of Present Illness MD Complaint: Chest pain, Cough, Pain with inspiration, Shortness of breath Onset/Timin -: Days(s) Radiation: Left arm Severity scale (1-10): 9 Consistency: Constant Improves With: Nothing Worsens With: Coughing, Movement Known History Of: COPD Context: Recent URI Associated Symptoms: Chest pain, Cough, Nausea/vomiting, Pain with inspiration, Sputum production - Related Data Home Oxygen Therapy: No Home Medications Medication Instructions Recorded Confirmed Last Taken Cholecalciferol (Vitamin D3) 6,000 unit PO DAILY 08/25/14 02/17/17 12/13/16 [Vitamin D3] Omeprazole [Prilosec] 40 mg PO DAILY 08/25/14 02/17/17 12/13/16 Warfarin Sodium [Coumadin] 5 mg PO QHS 08/25/14 02/17/17 12/13/16 Albuterol Sulfate 0.083% [Neb] 3 ml NEB .EVERY 4-6 HOURS PRN 01/25/15 02/17/17 12/13/16 Budesonide/Formoterol Fumarate 6 gm IH DAILY 01/25/15 02/17/17 12/13/16 [Symbicort 160-4.5 Mcg Inhaler] Digoxin [Digox] 250 mcg PO DAILY 01/25/15 02/17/17 12/13/16 Fludrocortisone Acetate 0.1 mg PO DAILY 10/12/15 02/17/17 12/13/16 Pantoprazole Sodium [Protonix] 40 mg PO DAILY 11/23/16 02/17/17 12/13/16 Polyethylene Glycol 3350 [Miralax] 1 packet PO DAILY 12/14/16 02/17/17 01/18/17 Magnesium Oxide [Mag Ox] 400 mg PO DAILY 02/17/17 02/17/17 Unknown Prednisone [Prednisone 10Mg] 15 mg PO DAILY 02/17/17 02/17/17 Unknown Allergies Allergy/AdvReac Type Severity Reaction Status Date / Time No Known Drug Allergies Allergy Verified 01/18/17 18:11 Travel Screening - Travel/Exposure Within Last 30 Days Have you traveled within the last 30 days?: No - Travel Symptoms Symptom Screening: None Review of Systems Reviewed: No additional complaints except as noted below Constitutional: Reports: As per HPI. Denies: Chills, Fever, Malaise, Night sweats, Weakness, Weight change Eyes: Reports: As per HPI. Denies: Eye discharge, Eye pain, Photophobia, Vision change ENT: Reports: As per HPI. Denies: Congestion, Dental pain, Ear pain, Epistaxis , Hearing loss, Throat pain Respiratory: Reports: As per HPI. Denies: Cough, Dyspnea, Hemoptysis, Stridor, Wheezes Cardiovascular: Reports: As per HPI. Denies: Arrhythmia, Chest pain, Dyspnea on exertion, Edema, Murmurs, Orthopnea, Palpitations, Paroxysmal nocturnal dyspnea, Rheumatic Fever, Syncope Endocrine: Reports: As per HPI. Denies: Fatigue, Heat or cold intolerance, Polydipsia, Polyuria Gastrointestinal: Reports: As per HPI. Denies: Abdominal pain, Constipation, Diarrhea, Hematemesis, Hematochezia, Melena, Nausea, Vomiting Genitourinary: Reports: As per HPI. Denies: Dysuria, Frequency, Hematuria, Incontinence, Retention, Testicular pain, Testicular mass, Urgency Musculoskeletal: Reports: As per HPI. Denies: Arthralgia, Back pain, Gout, Joint swelling, Myalgia, Neck pain Skin: Reports: As per HPI. Denies: Bruising, Change in color, Change in hair/ nails, Lesions, Pruritus, Rash Neurological: Reports: As per HPI. Denies: Abnormal gait, Confusion, Headache, Numbness, Paresthesias, Seizure, Tingling, Tremors, Vertigo, Weakness Psychiatric: Reports: As per HPI. Denies: Anxiety, Auditory hallucinations, Depression, Homicidal thoughts, Suicidal thoughts, Visual hallucinations Hematological/Lymphatic: Reports: As per HPI. Denies: Anemia, Blood Clots, Easy bleeding, Easy bruising, Swollen glands Past Medical History - SOCIAL HISTORY Smoking Status: Former smoker - RESPIRATORY Hx Respiratory Disorders: Yes Hx Bronchitis: Yes Hx COPD: Yes Hx Dyspnea: Yes Hx Sleep Apnea: No Hx of CPAP: No Comment:: fluid "pocket" on base of left lung - CARDIOVASCULAR Hx Cardio Disorders: Yes Hx Irregular Heartbeat: Yes (afib) Comment:: A-Fib-no problems for several yrs - NEURO Hx Neuro Disorders: No - GI Hx GI Disorders: Yes Hx Abdominal Pain: Yes Hx Reflux: Yes Hx Obstructive Bowel: Yes Hx Wt Loss/Wt Gain: Yes Hx of Polyps: Yes Comment:: esophagectomy/weight loss due to chemo - Hx Genitourinary Disorders: Yes Hx Kidney Stones: Yes Hx Prostate Problems: Yes (BPH) - ENDOCRINE Hx Endocrine Disorders: No Hx Diabetes: No - MUSCULOSKELETAL Hx Musculoskeletal Disorders: Yes Hx Arthritis: Yes - PSYCH Hx Psych Problems: No - HEMATOLOGY/ONCOLOGY Hx Hematology/Oncology Disorders: Yes Hx Bruising: Yes (d/t coumadin) 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) Hx Chemotherapy: Yes (October 29, 2015) Hx Radiation Therapy: Yes (Ended Apr 2014) Hx Blood Transfusions: Yes Hx Blood Transfusion Reaction: Yes Family Medical History Any Significant Family History?: Yes Hx Cancer: Mother Hx Heart Disease: Father, Mother Hx Stroke: Mother Physical Exam - General General Appearance: Alert, Oriented x3, Cooperative, Mild distress - Head Head exam: Normal inspection - Eye Eye exam: Normal appearance, PERRL, EOMI Pupils: Normal accommodation - ENT ENT exam: Normal exam, Mucous membranes moist, Normal external ear exam, Normal orophraynx, TM's normal bilaterally Ear exam: Normal external inspection. negative: External canal tenderness Nasal Exam: Normal inspection. negative: Discharge, Sinus tenderness Mouth exam: Normal external inspection, Tongue normal Teeth exam: Normal inspection. negative: Dental caries Throat exam: Normal inspection. negative: Tonsillar erythema, Tonsillar exudate - Neck Neck exam: Normal inspection, Full ROM. negative: Tenderness - Respiratory Respiratory exam: Chest wall tenderness, Rales, Respiratory distress, Wheezes - Cardiovascular Cardiovascular Exam: Regular rate, Irregular rhythm - GI/Abdominal GI/Abdominal exam: Soft, Normal bowel sounds. negative: Tenderness - Rectal Rectal exam: Deferred - exam: Deferred - Extremities Extremities exam: Normal inspection, Full ROM, Normal capillary refill. negative: Tenderness - Back Back exam: Reports: Normal inspection, Full ROM. Denies: Muscle spasm, Rash noted, Tenderness - Neurological Neurological exam: Alert, CN II-XII intact, Normal gait, Oriented X3 - Psychiatric Psychiatric exam: Normal affect, Normal mood - Skin Skin exam: Dry, Intact, Normal color, Warm Course Vital Signs 02/17/17 04:02 Temperature 97.8 F Pulse Rate 88 Respiratory 14 Rate Blood Pressure 147/106 Pulse Ox 97 - Reevaluation(s) Reevaluation #1: 02/17/17 05:57 pts pain is better with morphine 1mg. Medical Decision Making - Lab Data Result diagrams: 02/17/17 04:29 02/17/17 04:29 Disposition Disposition: Admit Clinical Impression: Pleural effusion Chest pain Qualifiers: Chest pain type: unspecified Qualified Code(s): R07.9 - Chest pain, unspecified Afib Qualifiers: Atrial fibrillation type: chronic Qualified Code(s): I48.2 - Chronic atrial fibrillation Coumadin toxicity Qualifiers: Encounter type: initial encounter Injury intent: accidental or unintentional Qualified Code(s): T45.511A - Poisoning by anticoagulants, accidental ( unintentional), initial encounter Disposition: Still a Patient at [facility] Decision to Admit: Admit from ER Decision to Admit Date: 02/17/17 Decision to Admit Time: 06:44 Forms: Patient Portal Access Quality - Quality Measures Quality Measures: N/A - Blood Pressure Screening Blood Pressure Classification: Hypertensive Reading Systolic Measurement: 147 Diastolic Measurement: 106 Screening for High Blood Pressure: < First Hypertensive BP, F/U Documented > [ G8950] First Hypertensive Follow-up Interventions: Referral to alternative/primary care provider.
[2017-02-17 04:47] LABS: ANION GAP 2.7 (7-16); BLOOD UREA NITROGEN 20 mg/dL (9-20); CARBON DIOXIDE 36.3 mmol/L (22-30); CREATININE 0.9 mg/dL (0.66-1.25); EST GLOMERULAR FILTRATION RATE > 60 ml/min; GLUCOSE,RANDOM 94 mg/dL (70-110)
[2017-02-17 04:51] LABS: INR 4.58
[2017-02-17 04:52] LABS: PROTHROMBIN TIME (PATIENT) 50.2 SECONDS (9.5-12.1)
[2017-02-17 04:57] LABS: CKMB 0.6 ug/L (0-6); TROPONIN I 0.035 ng/mL (0.00-0.034)
[2017-02-17] MEDS ORDERED: 0.9% SODIUM CHLORIDE 250ML BAG IV ONE (07:09)
--- NOTE | 2017-02-17 07:30 | History & Physical ---
History of Present Illness - Date of Service Date of Service for History & Physical: 02/17/17 - History of Present Illness History of Present Illness: 76 yo Male with pmhx of Afib, esophageal cancer (s/p partial esophagectomy 05/25 , currently undergoing chemo), acid reflux, arthritis, h/o lumbar strain, h/o PTX (01/25), and BPH presented to the ED on 02/17/17 for chest pain and THERESA. Patient noticed substernal CP while at rest at 4 am this morning. Described as achy. Radiation to left shoulder. aggravated by nothing. alleviated by IV pain medication in the ER. Associated symptoms included wheezing, THERESA, low back pain, b/l hip pain, b/l LE numbness/tingling and weakness. Patient's brought him to the ER. upon presentation, temp 97.8, HR 88, RR 14, bp 147/106, pulse ox 97%. WBC 8.4, hgb 9.9, hct 31.6, plt 240, glucose 94, troponin 0.035, d-dimer 0.75, BNP 2260, PT 50.2, INR 4.58, digoxin 0.40. CTA: pulm emphysema, moderate L pleural effusion, hilar/mediastinal adenopathy. EKG: afib, st dep v4-6, unchanged from previous EKG (read by ER physician). Patient was given ASA and 1 mg of IV Morphine for chest pain in the ER. In addition, patient received duo neb treatment for THERESA. Patient was plated on telemetry. Cardiac enzymes ordered and cardiology consult placed. Patient admitted for further medical management. Patient's chest pain resolved following IV pain medication in the ER. He continues to experience significant low back and b/l hip pain. He felt extremely weak upon presentation to the ER, however did walk to the restroom since arriving to the floor. Patient admits to chronic low back and hip pain. States he was admitted to [facility] in November 2016 and to [facility] in January 2017. He typically take 1300 mg of arthritis tylenol Q8H's at home for pain. Patient previously on [place] for pain, however, unfortunately this lead to severe constipation. Patient denies any THERESA, fever, chills, n/v, abdominal pain, dysuria, blood in stool, sob, numbness/tingling of extremities, dizziness or lightheadedness. Reports chronic, productive cough (white sputum). 160 # gradual weight loss since being diagnosed with esophageal cancer in October 2013. Patient states he had an unchanged PET scan 3 months ago. Reports h/o PTX in 01/2017 at [facility] when left pleural effusion was attempted to be drained. PCP: Odette Oncologist: Edgar Derrick Helper: Nash. he would like to change to Dr. Guadarrama and he's no longer willing to go to [facility]. Dopster: Tito Surgeon: Nba Travel Screening - Travel/Exposure Within Last 30 Days Have you traveled within the last 30 days?: No - Travel Symptoms Symptom Screening: None Review of Systems Constitutional: Reports: As per HPI, Weakness. Denies: Chills, Fever, Malaise, Night sweats, Weight change Eyes: Reports: As per HPI. Denies: Eye discharge, Eye pain, Photophobia, Vision change ENT: Reports: As per HPI. Denies: Congestion, Dental pain, Ear pain, Epistaxis , Hearing loss, Throat pain Respiratory: Reports: As per HPI, Cough (chronic). Denies: Dyspnea, Hemoptysis , Stridor, Wheezes Cardiovascular: Reports: As per HPI. Denies: Arrhythmia, Chest pain, Dyspnea on exertion, Edema, Murmurs, Orthopnea, Palpitations, Paroxysmal nocturnal dyspnea, Rheumatic Fever, Syncope Endocrine: Reports: As per HPI. Denies: Fatigue, Heat or cold intolerance, Polydipsia, Polyuria Gastrointestinal: Reports: As per HPI. Denies: Abdominal pain, Constipation, Diarrhea, Hematemesis, Hematochezia, Melena, Nausea, Vomiting Genitourinary: Reports: As per HPI. Denies: Dysuria, Frequency, Hematuria, Incontinence, Retention, Testicular pain, Testicular mass, Urgency Musculoskeletal: Reports: As per HPI, Back pain (lumbar), Other (b/l hip pain). Denies: Arthralgia, Gout, Joint swelling, Myalgia, Neck pain Skin: Reports: As per HPI. Denies: Bruising, Change in color, Change in hair/ nails, Lesions, Pruritus, Rash Neurological: Reports: As per HPI, Abnormal gait (2/2 pain, weakness), Weakness. Denies: Confusion, Headache, Numbness, Paresthesias, Seizure, Tingling, Tremors, Vertigo Psychiatric: Reports: As per HPI. Denies: Anxiety, Auditory hallucinations, Depression, Homicidal thoughts, Suicidal thoughts, Visual hallucinations Hematological/Lymphatic: Reports: As per HPI. Denies: Anemia, Blood Clots, Easy bleeding, Easy bruising, Swollen glands Past Medical History - SOCIAL HISTORY Smoking Status: Former smoker - RESPIRATORY Hx Respiratory Disorders: Yes Hx Bronchitis: Yes Hx COPD: Yes Hx Dyspnea: Yes Hx Sleep Apnea: No Hx of CPAP: No Comment:: fluid "pocket" on base of left lung - CARDIOVASCULAR Hx Cardio Disorders: Yes Hx Irregular Heartbeat: Yes (afib) Comment:: A-Fib-no problems for several yrs - NEURO Hx Neuro Disorders: No - GI Hx GI Disorders: Yes Hx Abdominal Pain: Yes Hx Reflux: Yes Hx Obstructive Bowel: Yes Hx Wt Loss/Wt Gain: Yes Hx of Polyps: Yes Comment:: esophagectomy/weight loss due to chemo - Hx Genitourinary Disorders: Yes Hx Kidney Stones: Yes Hx Prostate Problems: Yes (BPH) - ENDOCRINE Hx Endocrine Disorders: No Hx Diabetes: No - MUSCULOSKELETAL Hx Musculoskeletal Disorders: Yes Hx Arthritis: Yes - PSYCH Hx Psych Problems: No - HEMATOLOGY/ONCOLOGY Hx Hematology/Oncology Disorders: Yes Hx Bruising: Yes (d/t coumadin) 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) Hx Chemotherapy: Yes (October 29, 2015) Hx Radiation Therapy: Yes (Ended Apr 2014) Hx Blood Transfusions: Yes Hx Blood Transfusion Reaction: Yes Family Medical History Any Significant Family History?: Yes Hx Cancer: Mother Hx Heart Disease: Father, Mother Hx Stroke: Mother H&P Meds/Allergies - Allergies Allergies: Allergies Allergy/AdvReac Type Severity Reaction Status Date / Time No Known Drug Allergies Allergy Verified 01/18/17 18:11 - Home Medications Home Medications Medication Instructions Recorded Confirmed Last Taken Cholecalciferol (Vitamin D3) 6,000 unit PO DAILY 08/25/14 02/17/17 12/13/16 [Vitamin D3] Omeprazole [Prilosec] 40 mg PO DAILY 08/25/14 02/17/17 12/13/16 Warfarin Sodium [Coumadin] 5 mg PO QHS 08/25/14 02/17/17 12/13/16 Albuterol Sulfate 0.083% [Neb] 3 ml NEB .EVERY 4-6 HOURS PRN 07/02/17/17 12/13/16 Budesonide/Formoterol Fumarate 2 puff INH BID 01/25/15 02/17/17 12/13/16 [Symbicort 160-4.5 Mcg Inhaler] Digoxin [Digox] 250 mcg PO DAILY 01/25/15 02/17/17 12/13/16 Fludrocortisone Acetate 0.1 mg PO DAILY 10/12/15 02/17/17 12/13/16 Pantoprazole Sodium [Protonix] 40 mg PO QPM 11/23/16 02/17/17 12/13/16 Polyethylene Glycol 3350 [Miralax] 1 packet PO BID 12/14/16 02/17/17 01/18/17 Docusate Sodium [Dok] 100 mg PO QHS 02/17/17 02/17/17 Unknown Guaifenesin [Guaifenesin ER] 600 mg PO BID 02/17/17 02/17/17 Unknown Lactulose [Lactulose] 10 gm PO BID 02/17/17 02/17/17 Unknown Prednisone [Prednisone 10Mg] 15 mg PO DAILY 02/17/17 02/17/17 Unknown Tamsulosin HCl [Flomax] 0.4 mg PO DAILY 02/17/17 02/17/17 Unknown Physical Exam - Vital Signs Vital Signs: Vital Signs - Last 24 Hrs Pulse Resp BP Pulse Ox 02/17/17 07:17 90 16 154/105 95 - General General Appearance: Alert, Oriented x3, Cooperative, Mild distress (2/2 pain level) Limitations: No limitations - Head Head exam: Normal inspection - Eye Eye exam: Normal appearance, PERRL, EOMI Pupils: Normal accommodation - ENT ENT exam: Normal exam, Mucous membranes moist, Normal external ear exam, Normal orophraynx, TM's normal bilaterally Ear exam: Normal external inspection. negative: External canal tenderness Nasal Exam: Normal inspection. negative: Discharge, Sinus tenderness Mouth exam: Normal external inspection, Tongue normal Teeth exam: Normal inspection. negative: Dental caries Throat exam: Normal inspection. negative: Tonsillar erythema, Tonsillar exudate - Neck Neck exam: Normal inspection, Full ROM. negative: Tenderness - Respiratory Respiratory exam: Rales. negative: Chest wall tenderness, Respiratory distress , Wheezes - Cardiovascular Cardiovascular Exam: Irregular rhythm - GI/Abdominal GI/Abdominal exam: Soft, Normal bowel sounds. negative: Tenderness - Rectal Rectal exam: Deferred - exam: Deferred - Extremities Extremities exam: Normal inspection, Full ROM, Normal capillary refill. negative: Tenderness - Back Back exam: Reports: Normal inspection, Other (low back pain with rising from bed ). Denies: Muscle spasm, Rash noted, Tenderness - Neurological Neurological exam: Alert, CN II-XII intact, Normal gait, Oriented X3 - Psychiatric Psychiatric exam: Normal affect, Normal mood - Skin Skin exam: Dry, Intact, Normal color, Warm Results - Labs Result Diagrams: 02/17/17 04:29 02/17/17 04:29 VTE H&P Assessment - Risk for VTE Risk for VTE: Yes Risk Level: High Risk Assessment Date: 02/17/17 Risk Assessment Time: 08:00 VTE Orders Placed or Will Be Placed: Yes Plan - Detailed Diagnosis and Plan (1) Chest pain Current Visit: Yes Status: Acute Qualifiers: Chest pain type: unspecified Qualified Code(s): R07.9 - Chest pain, unspecified Base Code: R07.9 - CHEST PAIN, UNSPECIFIED Comment: 02/17- cardiac vs. GI vs. MSK vs. other? CTA: no PE, mod L pleural effusion, pulm emphysema, hilar/ mediastinal adenopathy. - troponin 0.035 - BNP 2260 - d-dimer 0.75. - ekg: afib, st dep v4-6 unchanged - continue telemetry - cp has resolved - denies L/R upper ext pain, numbness/tingling, diaphoresis, SOB or THERESA. - continue telemetry - SL Nitro prn - Duo neb Q4H prn - monitor VS Q2 x 2, then Q4H (2) Afib Current Visit: Yes Status: Acute Qualifiers: Atrial fibrillation type: chronic Qualified Code(s): I48.2 - Chronic atrial fibrillation Base Code: I48.91 - UNSPECIFIED ATRIAL FIBRILLATION Comment: 02/17- - continue home medications (digoxin) - will hold coumadin noting supratherapeutic INR. pharmacy will manage - continue telemetry - cardiac consult (3) Low back pain Current Visit: Yes Status: Acute Base Code: M54.5 - LOW BACK PAIN Comment : 02/17- arthritis vs. strain vs other? Will work at managing pain level. Continue home tylenol dose. Will trial ultram. Consider Toradol if ultram is not helpful. (4) Hip pain, bilateral Current Visit: Yes Status: Acute Base Code: M25.551 - PAIN IN RIGHT HIP; M25.552 - PAIN IN LEFT HIP Comment: 02/17- arthritis vs. related to LBP vs. strain vs other? Will work at managing pain level. Continue home tylenol dose. Will trial ultram. Consider Toradol if ultram is not helpful. (5) Pleural effusion Current Visit: No Status: Acute Base Code: J90 - PLEURAL EFFUSION, NOT ELSEWHERE CLASSIFIED Comment: 02/17- Chest CTA: moderate size left pleural effusion, chronic. BNP 2260. Will hold IV fluids. (6) DNR (do not resuscitate) Current Visit: Yes Status: Acute Base Code: Z66 - DO NOT RESUSCITATE Comment: 02/17- pt is DNR (7) DVT prophylaxis Current Visit: Yes Status: Acute Base Code: [id number] - Comment: 02/17- patient on coumadin
[2017-02-17] MEDS ORDERED: ALBUTEROL SULFATE (0.083%) 2.5 MG/3 ML NEB INH PRN ×2 (08:07→08:30)
[2017-02-17] MEDS ORDERED: NITROGLYCERIN 0.4MG SL TABLET #25 BTL SL PRN (08:07)
[2017-02-17] MEDS: ACETAMINOPHEN 500 MG TABLET PO PRN ×3 (08:17→18:52)
[2017-02-17] MEDS ORDERED: MAGNESIUM OXIDE 400 MG TABLET PO SCH (10:00)
[2017-02-17] MEDS ORDERED: OMEPRAZOLE 40 MG PO SCH (10:00)
[2017-02-17] MEDS ORDERED: POLYETHYLENE GLY 17 GM PACKET PO SCH (10:00)
[2017-02-17] MEDS ORDERED: PANTOPRAZOLE SODIUM 40 MG TABLET PO SCH (10:00)
[2017-02-17] MEDS: TAMSULOSIN HCL 0.4 MG CAP.ER.24H PO SCH (10:09)
[2017-02-17] MEDS: DIGOXIN 125 MCG TABLET PO SCH (10:09)
[2017-02-17] MEDS: PANTOPRAZOLE SODIUM 40 MG TABLET PO SCH ×2 (10:09→18:54)
[2017-02-17] MEDS: POLYETHYLENE GLY 17 GM PACKET PO SCH ×2 (10:10→18:52)
[2017-02-17] MEDS: LACTULOSE 20 GM/30 ML UDC PO SCH ×2 (10:10→21:13)
[2017-02-17] MEDS ORDERED: TRAMADOL HCL 50 MG TABLET PO PRN ×2 (10:37→14:14)
[2017-02-17 10:55] LABS: CKMB 0.7 ug/L (0-6); TROPONIN I 0.036 ng/mL (0.00-0.034)
[2017-02-17] MEDS: FLUDROCORTISONE 0.1 MG PO SCH (11:22)
[2017-02-17] MEDS: ONDANSETRON 4 MG ODT TABLET SL PRN (12:22)
[2017-02-17] MEDS: SYMBICORT INH SCH ×2 (12:44→22:06)
[2017-02-17 18:57] LABS: CKMB 0.8 ug/L (0-6); TROPONIN I 0.028 ng/mL (0.00-0.034)
--- NOTE | 2017-02-17 20:24 | Discharge Summary ---
Providers Discharge Summary Date: 02/17/17 Date of admission: 02/17/17 07:10 Expected Date of Discharge: 02/18/17 Attending physician: HALLIE READ Consults: Consult Orders 02/17/17 07:27 Consult - Cardiology NOW Consulting Provider: DENTON GUADARRAMA Physician Instructions: Reason For Exam: chest pain, elevated troponin, sob Does pt have current edi programmer analyst?: Other Physical Exam - Vital Signs Vital Signs: Vital Signs - Last 24 Hrs Temp Pulse Pulse Resp BP BP Pulse Ox 02/17/17 19:50 97.9 F 87 22 119/86 100 02/17/17 14:07 96.8 F L 88 16 140/60 96 02/17/17 12:44 16 02/17/17 09:00 12 02/17/17 08:07 12 153/90 02/17/17 08:03 97.6 F 93 H 12 146/110 96 02/17/17 07:17 90 16 154/105 95 02/17/17 07:15 97.6 F 94 H 16 157/105 99 - General General Appearance: Alert, Oriented x3, Cooperative, No acute distress, Other ( cachectic) Limitations: No limitations - Head Head exam: Normal inspection - Eye Eye exam: Normal appearance, PERRL, EOMI Pupils: Normal accommodation - ENT ENT exam: Normal exam, Mucous membranes moist, Normal external ear exam, Normal orophraynx, TM's normal bilaterally Ear exam: Normal external inspection. negative: External canal tenderness Nasal Exam: Normal inspection. negative: Discharge, Sinus tenderness Mouth exam: Normal external inspection, Tongue normal Teeth exam: Normal inspection. negative: Dental caries Throat exam: Normal inspection. negative: Tonsillar erythema, Tonsillar exudate - Neck Neck exam: Normal inspection, Full ROM. negative: Tenderness - Respiratory Respiratory exam: Rales. negative: Chest wall tenderness, Respiratory distress , Wheezes - Cardiovascular Cardiovascular Exam: Irregular rhythm - GI/Abdominal GI/Abdominal exam: Soft, Normal bowel sounds. negative: Tenderness - Rectal Rectal exam: Deferred - exam: Deferred - Extremities Extremities exam: Normal inspection, Full ROM, Normal capillary refill. negative: Tenderness - Back Back exam: Reports: Normal inspection, Other (low back pain with rising from bed ). Denies: Muscle spasm, Rash noted, Tenderness - Neurological Neurological exam: Alert, CN II-XII intact, Normal gait, Oriented X3 - Psychiatric Psychiatric exam: Normal affect, Normal mood - Skin Skin exam: Dry, Intact, Normal color, Warm Hospitalization - Hospitalization Admission Diagnosis: chest pain, a fib, pleural effusion, coumadin toxicity - Problem List/Discharge Diagnosis (1) Chest pain Current Visit: Yes Status: Acute Discharge Diagnosis: Chest pain type: unspecified Qualified Code(s): R07.9 - Chest pain, unspecified Base Code: R07.9 - CHEST PAIN, UNSPECIFIED Comment: 02/18- MSK vs. GI vs. other ? Pain resolved following IV Morphine in the ED. Troponin normalized. CTA: no PE, mod L pleural effusion, pulm emphysema, hilar/mediastinal adenopathy. - ekg: afib, st dep v4-6 unchanged - denies L/R upper ext pain, numbness/tingling, diaphoresis, SOB or THERESA. -Follow up appt with Dr Pino on WednesdayFeb 22 @ 8:30am -Follow appt with Dr Jimenez on Mar 10 @ 1:15pm -ECHO on Feb 23 @ 2:45pm - will set up home health services in the meantime - return re any new or worsening symptoms (2) Afib Current Visit: Yes Status: Acute Discharge Diagnosis: Atrial fibrillation type: chronic Qualified Code(s): I48.2 - Chronic atrial fibrillation Base Code: I48.91 - UNSPECIFIED ATRIAL FIBRILLATION Comment: 02/18-medically well controlled - continue home medications (digoxin) - continue to monitor INR level at home. - hold noting elevated INR - contact pcp regarding management - Follow up appt with Dr Pino on WednesdayFeb 22 @ 8:30am - Follow appt with Dr Jimenez on Mar 10 @ 1:15pm - ECHO on Feb 23 @ 2:45pm (3) Low back pain Current Visit: Yes Status: Acute Base Code: M54.5 - LOW BACK PAIN Comment : 02/18- Mild L4 fracture noted on x ray. Will continue to manage pain with tylenol as this works well. Will set patient up with home health services (PT/ OT, nursing). - Follow up appt with Dr Pino on WednesdayFeb 22 @ 8:30am (4) Hip pain, bilateral Current Visit: Yes Status: Acute Base Code: M25.551 - PAIN IN RIGHT HIP; M25.552 - PAIN IN LEFT HIP Comment: 02/18- arthritis vs. related to mild lumbar fx vs. inflammation? continue tylenol for pain control. Home PT/OT. (5) Pleural effusion Current Visit: No Status: Acute Base Code: J90 - PLEURAL EFFUSION, NOT ELSEWHERE CLASSIFIED Comment: 02/18- noted on CTA 07/28 & 02/25. O2 95% on RA. Denies CP, SOB. (6) DNR (do not resuscitate) Current Visit: Yes Status: Acute Base Code: Z66 - DO NOT RESUSCITATE Comment: 02/18- pt remained DNR (7) Esophageal carcinoma Current Visit: Yes Status: Acute Base Code: C15.9 - MALIGNANT NEOPLASM OF ESOPHAGUS, UNSPECIFIED Comment: 02/18- chest CTA: marked progression of pulmonary mets as well as mediastinal and hilar dottie mets. suspect new adrenal mets. increase in size of left paraesophageal mass near the GE junction consistent with progression of tumor. - imaging review with patient's Oncologist, Dr. Reeves. Patient will have PET scan completed today and follow up with oncology on Wednesday as scheduled. - Follow up appt with Dr Pino on WednesdayFeb 22 @ 8:30am -Follow appt with Dr Jimenez on Mar 10 @ 1:15pm -ECHO on Feb 23 @ 2:45pm - Hospitalization Course Disposition: Home Health Service Hospital Course: 76 yo Male with pmhx of Afib, esophageal cancer (s/p partial esophagectomy 05/25 , currently undergoing chemo), acid reflux, arthritis, h/o lumbar strain, h/o PTX (01/25), and BPH presented to the ED on 02/17/17 for chest pain and THERESA. Patient noticed substernal CP while at rest at 4 am this morning. Described as achy. Radiation to left shoulder. aggravated by nothing. alleviated by IV pain medication in the ER. Associated symptoms included wheezing, THERESA, low back pain, b/l hip pain, b/l LE numbness/tingling and weakness. Patient's brought him to the ER. upon presentation, temp 97.8, HR 88, RR 14, bp 147/106, pulse ox 97%. WBC 8.4, hgb 9.9, hct 31.6, plt 240, glucose 94, troponin 0.035, d-dimer 0.75, BNP 2260, PT 50.2, INR 4.58, digoxin 0.40. CTA: pulm emphysema, moderate L pleural effusion, hilar/mediastinal adenopathy. EKG: afib, st dep v4-6, unchanged from previous EKG (read by ER physician). Patient was given ASA and 1 mg of IV Morphine for chest pain in the ER. In addition, patient received duo neb treatment for THERESA. Patient was plated on telemetry. Cardiac enzymes ordered and cardiology consult placed. Patient admitted for further medical management. Patient's chest pain resolved following IV pain medication in the ER. He continues to experience significant low back and b/l hip pain. He felt extremely weak upon presentation to the ER, however did walk to the restroom since arriving to the floor. Patient admits to chronic low back and hip pain. States he was admitted to [facility] in November 2016 and to [facility] in January 2017. He typically take 1300 mg of arthritis tylenol Q8H's at home for pain. Patient previously on [place] for pain, however, unfortunately this lead to severe constipation. Patient denies any THERESA, fever, chills, n/v, abdominal pain, dysuria, blood in stool, sob, numbness/tingling of extremities, dizziness or lightheadedness. Reports chronic, productive cough (white sputum). 160 # gradual weight loss since being diagnosed with esophageal cancer in October 2013. Patient states he had an unchanged PET scan 3 months ago. Reports h/o PTX in 01/2017 at [facility] when left pleural effusion was attempted to be drained. PCP: Odette Oncologist: Edgar Tool And Die Technician: Nash. he would like to change to Dr. Guadarrama and he's no longer willing to go to [facility]. Lead Cook: Tito Surgeon: Nba 02/18/17: patient sitting up in bed with his at bedside. states his pain is much better controlled since started a tylenol regimen. he did not like how tramadol made him feel. states he tolerated his meal this morning. normal GI/ function. feels weak. ambulating to the restroom. evaluated by PT this am. Has PET scan scheduled for later today and would like to be d/c'd prior to this appt. Patient with episode of blood tinged sputum this morning around 9am. no other episodes. no epistaxis. no blood noted on mouth exam. Hgb relatively stable. no other signs of blood loss. Patient's oncologist, Dr. Reeves. Reviewed patient Chest CTA from 02/17 which demonstrates progression of disease. we discussed care options for patient which include having PET scan completed today and following up with Dr. Reeves on Wednesday as scheduled vs. hospice care. Patient met with myself and case management. He was made aware of chest CTA findings and care options. he would like to go forth with PET scan, oncology visit and home health services. Procedures: Imaging and X-Rays 02/17/17 15:46 HIP,BILATERAL W/PELVIS 2 VIEWS [RAD] Routine LUMBAR SPINE W/OBLIQUES [RAD] Stat Abnormal Labs: Abnormal Lab Results 02/17/17 Range/Units 10:15 Troponin I 0.036 H (0.00-0.034) ng/mL Condition at Discharge: (2) Stable Discharge Medications - Discharge Medications Home Medications: Ambulatory Orders Cholecalciferol (Vitamin D3) [Vitamin D3] 6,000 unit PO DAILY 08/25/14 [Last Taken 12/13/16] Omeprazole [Prilosec] 40 mg PO DAILY 08/25/14 [Last Taken 12/13/16] Albuterol Sulfate 0.083% [Neb] 3 ml NEB .EVERY 4-6 HOURS PRN 01/25/15 [Last Taken 12/13/16] Budesonide/Formoterol Fumarate [Symbicort 160-4.5 Mcg Inhaler] 2 puff INH BID [Last Taken 12/13/16] Digoxin [Digox] 250 mcg PO DAILY 01/25/15 [Last Taken 12/13/16] Fludrocortisone Acetate 0.1 mg PO DAILY 10/12/15 [Last Taken 12/13/16] Pantoprazole Sodium [Protonix] 40 mg PO QPM 11/23/16 [Last Taken 12/13/16] Polyethylene Glycol 3350 [Miralax] 1 packet PO BID 12/14/16 [Last Taken 01/18/17 ] Docusate Sodium [Dok] 100 mg PO QHS 02/17/17 [Last Taken Unknown] Guaifenesin [Guaifenesin ER] 600 mg PO BID 02/17/17 [Last Taken Unknown] Lactulose 10 gm PO BID 02/17/17 [Last Taken Unknown] Prednisone [Prednisone 10Mg] 15 mg PO DAILY 02/17/17 [Last Taken Unknown] Tamsulosin HCl [Flomax] 0.4 mg PO DAILY 02/17/17 [Last Taken Unknown] Discharge Plan - Discharge Instructions Activity at Discharge: As Per Physical Therapy Diet at Discharge: Regular Diet, Low Salt Diet Additional Instructions: Follow up appt with Dr Pino on WednesdayFeb 22 @ 8:30am Follow appt with Dr Jimenez on Mar 10 @ 1:15pm ECHO on Feb 23 @ 2:45pm Continue home medications, except coumadin (warfarin). Please continue to monitor your INR at home. Contact Dr. Pino prior to restarting coumadin therapy. PET scan scheduled for today and visit with Dr. Reeves on Wednesday as scheduled. Home health services will be set up prior to discharge by our case management team. Return regarding any new or worsening symptoms.
[2017-02-18] MEDS: ACETAMINOPHEN 500 MG TABLET PO PRN ×2 (02:09→10:07)
[2017-02-18] MEDS: PANTOPRAZOLE SODIUM 40 MG TABLET PO SCH (06:18)
[2017-02-18 06:37] LABS: HEMOGLOBIN 9.4 gm/dl (14.0-18.0); MEAN CELL VOLUME 101.6 fl (81-97); MEAN CORPUSCULAR HEMOGLOBIN 30.8 pg (27-33); MEAN CORPUSCULAR HGB CONC 30.3 g/dl (32-36); MEAN PLATELET VOLUME 8.1 fl (7.4-10.4); PLATELET COUNT 203 K/uL (130-400); RED BLOOD COUNT 3.05 M/uL (4.40-5.70); RED CELL DISTRIBUTION WIDTH 16.2 % (11.5-14.5); WHITE BLOOD COUNT W/O DIFF 6.1 K/uL (4.2-12.2)
[2017-02-18 06:49] LABS: ANION GAP 4.4 (7-16); BLOOD UREA NITROGEN 18 mg/dL (9-20); CARBON DIOXIDE 34.6 mmol/L (22-30); CREATININE 0.7 mg/dL (0.66-1.25); EST GLOMERULAR FILTRATION RATE > 60 ml/min; GLUCOSE,RANDOM 74 mg/dL (70-110)
[2017-02-18 06:53] LABS: INR 4.96
[2017-02-18 06:54] LABS: HYPOCHROMIA 1+; PLATELET ESTIMATE NORMAL (NORMAL)
[2017-02-18 06:57] LABS: PROTHROMBIN TIME (PATIENT) 54.4 SECONDS (9.5-12.1)
--- NOTE | 2017-02-18 07:25 | CT ANGIOGRAM REPORT ---
EXAM: CTA OF THE CHEST HISTORY: ACUTE GENERALIZED CHEST PAIN AND BACK PAIN FOR THREE DAYS. HISTORY OF ESOPHAGEAL CANCER STATUS POST CHEMOTHERAPY. TECHNIQUE: Contiguous axial images from the thoracic inlet to the upper abdomen were obtained after the uneventful intravenous administration of 95 ml of Omnipaque 350. Sagittal and coronal two dimensional MIP as well as 3D/MIP reformatted images were obtained for better anatomic delineation. Comparison: CT of the chest 08/09/16. FINDINGS: There is a chronic small left pleural effusion at the left base with a moderately thick peripheral wall measuring up to 1.9 cm in thickness. Greater than ten lung nodules within each lung which have increased in number and size from the prior study. Nodule in the posterior left lower lobe previously measured 11 x 7 mm, currently measuring 16 x 10 mm. The nodule at the posterior right apex previously measured 6 mm and currently measures 8 mm. The heart is not enlarged and there is no pericardial effusion. Bulky bilateral hardware adenopathy measuring up to 3.7 x 2.8 cm on the right and approximately 4.7 x 3.2 cm on the left markedly progressed from prior study. The adenopathy narrows the left lower lobe pulmonary artery as well as the right middle lobe segmental branches of the pulmonary artery. No pulmonary embolism. Also progression of mediastinal adenopathy. Prevascular lymph node previously measuring 1.1 x 0.7 cm and currently measures 1.9 x 1.7 cm. Precarinal lymph node previously measuring 1.7 x 0.7 cm and currently measures 2.5 x 1.6 cm. Status post gastric pull up procedure. Right adrenal nodule appears larger than the prior study likely due to metastasis currently measuring 12 mm, previously it measured 6 mm. Unilocular cyst upper pole right kidney measures 2.8 cm. No lytic or blastic osseous lesion. Left paraesophageal mass near the GE junction anterior to the descending thoracic aorta has increased in size currently measuring 3.7 x 2.6 cm and it previously measured 2.9 x 2.7 cm. IMPRESSION: 1. NO EVIDENCE OF PULMONARY EMBOLISM OR THORACIC AORTIC DISSECTION. 2. 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 3. 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 4. INCREASE IN SIZE OF THE LEFT PARAESOPHAGEAL MASS NEAR THE GE JUNCTION CONSISTENT WITH PROGRESSION OF TUMOR. JOB NUMBER: [id number] [facility]
--- NOTE | 2017-02-18 07:30 | RADIOLOGY REPORT ---
EXAM: LUMBAR SPINE HISTORY: LOW BACK PAIN. TECHNIQUE: Five views of the lumbar spine were obtained. Comparison: 11/23/16. FINDINGS: The bones are diffusely osteopenic. There are the typical five lumbar vertebral segments. There is mild compression fracture of the superior end plate of L4 new since the patient's previous study. No other fracture identified. The pedicles are unremarkable with no destructive process seen. Mild arthritic changes are present in the sacroiliac joint. A metallic fixation plate overlies the lower left ribs unchanged. There is contrast in the urinary bladder presumably from a recent CAT scan. Facet arthritic changes are present and are most prominent at L4-L5 and L5-S1. Degenerative end plate spurring is present throughout the lumbar spine. No evidence of spondylolysis or spondylolisthesis. There are atherosclerotic changes in the abdominal aorta. IMPRESSION: 1. MILD COMPRESSION FRACTURE OF THE SUPERIOR END PLATE OF L4 NEW SINCE THE PREVIOUS STUDY. 2. OTHER CHRONIC FINDINGS ABOVE. JOB NUMBER: [id number] [facility]
--- NOTE | 2017-02-18 08:13 | Medical Records Consult ---
HISTORY OF PRESENTING ILLNESS: Mr. May is a 76-year-old gentleman who was seen in consultation for permanent atrial fibrillation. Mr. May is a former patient of Dr. Cao of [facility]. He presented to [facility] with left-sided chest pain and hip pain. Mr. May has a significant history of esophageal cancer diagnosed in 2013. He had undergone esophagectomy with Dr. Arango a couple of years ago. His pain and discomfort in the chest at this time have resolved. He continues to have bilateral hip pain. He has a PET scan scheduled at [facility] on February 18, 2017. Since he has been here he had a troponin of 0.035 which was also a reason for this consultation. Mr. May has no history of coronary artery disease. He has undergone previous cardioversions which have been unsuccessful. At one time he had been on amiodarone and Tikosyn. At his last office visit he was told that he should be on Warfarin for permanent atrial fibrillation just for rate control. He believes he had an echocardiogram performed at [facility] in the past year. PAST MEDICAL HISTORY: Includes esophageal carcinoma and permanent atrial fibrillation. PAST SURGICAL HISTORY: Esophagectomy by Dr. Arango and thoracentesis. MEDICATIONS: Currently include digoxin 0.125 mg daily, Symbicort, albuterol, Vitamin D, Prilosec, MiraLAX, magnesium oxide, and prednisone. ALLERGIES: None listed. PHYSICAL EXAMINATION: Vital Signs: He is afebrile. Vital signs are stable. Lungs: There is wheezing and coarseness to the lungs bilaterally. Cardiac: Examination is irregularly irregular. Abdomen: Soft. Extremities: No edema. He is cachectic in appearance. LABORATORY PROFILE: Includes a troponin of 0.035, sodium 141, potassium 3.9, BUN 20, creatinine 0.9. D-Dimer 0.75. White count 80.4, hemoglobin 9.9, platelets 240,000. IMPRESSION: Mr. May has a history of permanent atrial fibrillation and is currently stable from a cardiac standpoint. PLAN: I agree with continuing digoxin and Warfarin. Mr. May will follow up with me in the [place] clinic upon discharge in the next three to four weeks. I will try to obtain his previous echocardiogram performed at [facility]. [facility]
[2017-02-18] MEDS: POLYETHYLENE GLY 17 GM PACKET PO SCH ×2 (08:47→09:27)
[2017-02-18] MEDS: LACTULOSE 20 GM/30 ML UDC PO SCH ×2 (08:47→09:27)
[2017-02-18] MEDS: TAMSULOSIN HCL 0.4 MG CAP.ER.24H PO SCH ×2 (08:48→09:27)
[2017-02-18] MEDS: DIGOXIN 125 MCG TABLET PO SCH ×2 (08:48→13:02)
[2017-02-18] MEDS: PREDNISONE 5 MG TAB PO SCH ×2 (08:51→09:28)
[2017-02-18] MEDS ORDERED: IPRATROPIUM/ALBUTEROL (0.5MG/3MG) NEB INH ONE (08:52)
[2017-02-18] MEDS: SYMBICORT INH SCH (10:10)
[2017-02-18] MEDS: ONDANSETRON 4 MG ODT TABLET SL PRN (10:17)
--- NOTE | 2017-02-18 11:56 | Rehab Evaluation ---
Patient Information - Patient Information Diagnosis: Chest pain, A-fib, pleural effusion, coumadin toxicity Ordered Treatment: OT Evaluate and Treat Status: Initial Evaluation History: Detail (Spouse brought pt into the ER on 02/17/17 due to c/o chest pain, and pain that was radiating into L shld. Chest pain resolved with tx received in ER but continues to experience low back pain and B hip pain. Pt c/o significant generalized weakness but has been able to walk to bathroom w/ nsg. Pt has chronic productive cough. He has a long standing history of esophageal cancer and is currently in his 5th round of chemo. CT scan shows that nodules are increasing in both number and size in lungs, lymph nodes, adrenal, kidney, as well as increased size of esophageal nodule.) Past Medical/Surgical Hx: PAST MEDICAL/SURGICAL HISTORY Past Surgical History esophagectomy-metal plate placed w/screws to hold ribs after surgery. tonsils appy left knee Aida lasics right eye Prostrate seed implant vasectomy PET Scans q 3 mos (November 03, 2015) fluid drained from left lung PMH - Respiratory Hx Respiratory Disorders Yes Hx Bronchitis Yes Hx Chronic Obstructive Yes Pulmonary Disease (COPD) Hx Dyspnea Yes Hx Sleep Apnea No Hx of CPAP No Comment: fluid "pocket" on base of left lung PMH - Cardiovascular Hx Cardiovascular Disorders Yes Hx Hypertension Yes Hx Irregular Heartbeat Yes: afib Comment: A-Fib-no problems for several yrs PMH - Neuro Hx Neurological Disorders No PMH - GI Hx Gastrointestinal Disorders Yes Hx Abdominal Pain Yes Hx Gastroesophageal Reflux Yes Hx Nausea/Vomiting Yes Hx Obstructive Bowel Yes Hx Weight Loss/Weight Gain Yes Comment: esophagectomy/weight loss due to chemo PMH - Hx Genitourinary Disorders Yes Hx Kidney Stones Yes Hx Prostate Problems Yes: BPH PMH - Endocrine Hx Endocrine Disorders No Hx Diabetes No PMH - Musculoskeletal Hx Musculoskeletal Disorders Yes Hx Arthritis Yes Hx Osteoporosis No PMH - Psych Hx Psychiatric Problems No PMH - Hematology/Oncology Hx Hematology/Oncology Yes Disorders Hx Bruising Yes: d/t coumadin Hx Cancer Yes: Esophagus and top of Stomach Hx Chemotherapy Yes: October 29, 2015 Hx Radiation Therapy Yes: Ended Apr 2014 Hx Blood Transfusion Reaction Yes Premorbid Status: Detail Social History: Detail (Pt lives with spouse in a 1-story house w/ finished basement. Basement contains pt's "man cave" and 's crafting area. Laundry also located in basement. Pt has walk-in shower w/ shower chair and grab bars. There is both a fixed and hand held shower head fixture. Pt also had sock aid, ceo & board director, raised toilet seat (no grab bars around toilet), walker, cane, and w/c available. Pt sits to shower. He had some occasional assitance w/ drsg secondary to decreased ability to reach feet to don socks and thread pants/ underpants over feet. This is due to Davian hip (R worse than L) and back pain. Compression fx found in lower back.) Precautions: [place], Fall - Time With Patient Total Time Spent With Patient (Min): 30 (PT present during evaluation) Treatment Procedures: Detail (Carley MOD, OT self 10/19) Subjective Information - Subjective Information Per Patient Objective Data - Pain Pain Present: Yes (Back and R hip) - Mental Status Patient Orientation: Oriented x3 - ROM Not within normal limits (RUE limited to ~95-100 deg shld flex and abd. Elbow, wrist, digit ROM WNL. Due to pain in lower back, Pt requested to lie down so LUE ROM was completed in supine. In gravity eliminated positioning pt showed improved ROM to ~140 deg shld flex and abd. WNL on the L for elbow and wrist, forearm ROM.) - Strength/Tone Within normal limits (Grossly 3+ to 4/5 MMT within available ROM BUE shld flex/ ext/abd/add.; and elbow flex/ext) - Coordination Appears within normal limits for therapeutic activities - Bed Mobility Independent - Transfers Needs Assist (SBA for safety Sit<>Stand t/f) - Balance Balance Sitting: Fair (Uses UE for support during sitting but pt's increased pain may have been affecting this assessment) - Sensation Intact (B digits. Pt reports sensation loss BLE's) - ADL's/IADL's Detail (Pt shows difficulty reaching to don socks and thread pants/underpants over feet secondary to increased pain in lower back and Davian hips. Pt does have sock aid but reports that he does not use this. Pt's decreased endurance will affect independence with ADLs. Further evaluation of ADLs needed.) Therapy Assessment - Therapy Assessment Detail (Pt shows weakness of BUE's, decreased endurance, decreased BUE ROM, decreased safety with mobility, decreased independence with ADLs, pain in lower back and hip affecting ability to engage in functional tasks. Pt is expected to leave today for a PET scan. CT scan report shows progression of cancer. Consultation between family and PA expected to discuss results. Pending results of PET scan, Feel OT skilled therapy services would be beneficial to address decreased UE ROM, decreased strength, decreased ind with ADLs, provide HEP, and family education.) Problem List - Problem List Occupational Therapy Problem List: Detail (1. Decreased independence with ADLs 2. Decreased endurance 3. Decreased ROM BUE's 4. Decreased strength BUE's) Goals - Goals Occupational Therapy Goals: 1. Pt to be independent with UB and LB drsg. 2. Pt to be ind with UE HEP. 3. Pt to be min A w/ showering using AD as needed Plan - Plan Occupational Therapy Plan: Pending results of PET scan, pt to be treated by OT during his stay at [facility] 2-4x week M-F. If pt to be d/c'd home, recommend skilled home OT services.
--- NOTE | 2017-02-18 12:57 | Rehab Evaluation ---
Patient Information - Patient Information Diagnosis: Chest pain, A-fib, pleural effusion, coumadin toxicity Ordered Treatment: PT Evaluate and Treat Status: Initial Evaluation Surgery: No History: Detail (Spouse brought pt into the ER on 02/17/17 due to c/o chest pain, and pain that was radiating into L shld. Chest pain resolved with tx received in ER but continues to experience low back pain and B hip pain. Pt c/o significant generalized weakness but has been able to walk to bathroom w/ nsg. Pt has chronic productive cough. He has a long standing history of esophageal cancer and is currently in his 5th round of chemo. CT scan shows that nodules are increasing in both number and size in lungs, lymph nodes, adrenal, kidney, as well as increased size of esophageal nodule.) Past Medical/Surgical Hx: PAST MEDICAL/SURGICAL HISTORY Past Surgical History esophagectomy-metal plate placed w/screws to hold ribs after surgery. tonsils appy left knee Aiad lasics right eye Prostrate seed implant vasectomy PET Scans q 3 mos (November 03, 2015) fluid drained from left lung PMH - Respiratory Hx Respiratory Disorders Yes Hx Bronchitis Yes Hx Chronic Obstructive Yes Pulmonary Disease (COPD) Hx Dyspnea Yes Hx Sleep Apnea No Hx of CPAP No Comment: fluid "pocket" on base of left lung PMH - Cardiovascular Hx Cardiovascular Disorders Yes Hx Hypertension Yes Hx Irregular Heartbeat Yes: afib Comment: A-Fib-no problems for several yrs PMH - Neuro Hx Neurological Disorders No PMH - GI Hx Gastrointestinal Disorders Yes Hx Abdominal Pain Yes Hx Gastroesophageal Reflux Yes Hx Nausea/Vomiting Yes Hx Obstructive Bowel Yes Hx Weight Loss/Weight Gain Yes Comment: esophagectomy/weight loss due to chemo PMH - Hx Genitourinary Disorders Yes Hx Kidney Stones Yes Hx Prostate Problems Yes: BPH PMH - Endocrine Hx Endocrine Disorders No Hx Diabetes No PMH - Musculoskeletal Hx Musculoskeletal Disorders Yes Hx Arthritis Yes Hx Osteoporosis No PMH - Psych Hx Psychiatric Problems No PMH - Hematology/Oncology Hx Hematology/Oncology Yes Disorders Hx Bruising Yes: d/t coumadin Hx Cancer Yes: Esophagus and top of Stomach Hx Chemotherapy Yes: October 29, 2015 Hx Radiation Therapy Yes: Ended Apr 2014 Hx Blood Transfusion Reaction Yes Premorbid Status: Detail (Pt was ambulating independently w/o assistive device within home; he was using a cane out of the home for uneven services. He was not very active since undergoing surgery and chemo. He was independent w/self- care activities but was needing assistance for donning/doffing socks and shoes because of low back pain. He did have a course of outpatient physical therapy last year for back pain with moderate results.) Social History: Detail (Pt lives with spouse in a 1-story house w/ finished basement. Basement contains pt's "man cave" and 's crafting area. Laundry also located in basement. Pt has walk-in shower w/ shower chair and grab bars. There is both a fixed and hand held shower head fixture. Pt also had sock aid, professor of environmental studies, raised toilet seat (no grab bars around toilet), walker, cane, and w/c available. Pt sits to shower. He had some occasional assitance w/ drsg secondary to decreased ability to reach feet to don socks and thread pants/ underpants over feet. This is due to Davian hip (R worse than L) and back pain. Compression fx found in lower back.) Precautions: [place], Fall - Time With Patient Total Time Spent With Patient (Min): 50 Treatment Procedures: Detail (PT Evaluation) Subjective Information - Subjective Information Per Patient (Upon presentation, pt was being assessed by OT. He verbalized significant pain in low back and R hip > L with bed mobility and sit/stand transfers. He stated he had not had pain medication since 2:00 a.m. Localizes pain to lumbosacral region and R > L greater trochanter. He states that he can only lie on his back or R side.) Objective Data - Pain Pain Present: Yes Pain Intensity: 10 Pain Scale Used: Numeric (1 - 10) - Mental Status Patient Orientation: Oriented x3 - Visual Perception Appears within normal limits for therapeutic activities - ROM Within normal limits - Strength/Tone Not within normal limits (3/5 strength in B hip flexion and extension, 4/5 B knee flexion and extension; 4+/5 B hip abd and add and B ankle df.) - Coordination Appears within normal limits for therapeutic activities - Bed Mobility Independent (Independent w/use of bedrail to assist to come to sitting. Able to get back in bed independently, but requires cuing and mod assist to scoot up in bed. Was able to perform this task w/greater ease after some pain relief.) - Transfers Needs Assist (Tends to use UE's to walk up legs to come to standing from sitting , requiring CGA. Good control with sitting from standing.) - Balance Balance Sitting: Good Balance Standing: Fair (Unable to complete formal balance testing due to patient 's weakness/fatigue/pain. Somewhat unsteady with standing unsupported and w/ ambulation.) - Sensation Intact (Intact to light touch, but notes numbness/tingling in B lower legs.) - Gait Detail (Ambulated w/o assistive device from bedside to bedroom door and back to bedside, w/METAL CNC OPERATOR and CGA. Fatigued/SOB.) - Special Tests Yes (Assessed pelvic alignment/mobility: mobilized posteriorly rotated R ilium, L ilium upslip. Applied icepack to R greater trochanter.) Therapy Assessment - Therapy Assessment Detail (Pt exhibits significant weakness and activity intolerance, particularly with ambulation. Unable to formally assess balance due to pt's pain and fatigue. He is likely to benefit from physical therapy, in a short term rehab setting or home care.) Patient Education - Patient Education Teaching Topic: Other (Ice pack to R greater trochanter to manage pain.) Response: Return Demonstration Teaching Method: Discussion Teaching Recipient: Patient, Family Barriers To Learning: None Problem List - Problem List Physical Therapy Problem List: Detail (1. Generalized weakness 2. Difficulty walking and sit/stand transfers. 3. Impaired activity tolerance.) Occupational Therapy Problem List: Detail (1. Decreased independence with ADLs 2. Decreased endurance 3. Decreased ROM BUE's 4. Decreased strength BUE's) Goals - Goals Physical Therapy Goals: 1. Safe and independent with sit/stand transfers. 2. Safely and independently ambulate over household distances w/appropriate assistive device. 3. Exhibit 4/5 strength in major muscle groups of B LE's for greater stability with standing and ambulation. 4. Formally assess balance w/ standardized test. Occupational Therapy Goals: 1. Pt to be independent with UB and LB drsg. 2. Pt to be ind with UE HEP. 3. Pt to be min A w/ showering using AD as needed Prognosis - Prognosis Moderate Plan - Plan Physical Therapy Plan: Pending results of PET scan that will determine disposition, pt will be seen 1-2x daily M-F to address above goals if he returns to [facility]. If he does not return, it is recommended that he consider short term rehab or skilled home physical therapy. Occupational Therapy Plan: Pending results of PET scan, pt to be treated by OT during his stay at [facility] 2-4x week M-. If pt to be d/c'd home, recommend skilled home OT services.
[2017-02-18] MEDS: FLUDROCORTISONE 0.1 MG PO SCH (13:02)
--- NOTE | 2017-02-19 07:46 | RADIOLOGY REPORT ---
EXAM: PELVIS AND BILATERAL HIPS HISTORY: CHRONIC RIGHT HIP PAIN. TECHNIQUE: AP view of the pelvis and four views of the bilateral hips were obtained. Comparison: Pelvis CT 12/06/16. FINDINGS: Osteopenia. Mild osteoarthritic change of the inferior sacroiliac joints with osteophytes. The sacrum is intact. Mild osteoarthritic change of the right femoroacetabular joint with small marginal osteophytes. The left femoroacetabular joint space is preserved with no obvious arthritic change. The femoral heads have a normal spherical configuration. No fracture. Radiodense seeds overlie the prostate bed. Contrast in the urinary bladder. IMPRESSION: MILD OSTEOARTHRITIC CHANGE OF THE INFERIOR SACROILIAC JOINTS AND RIGHT FEMOROACETABULAR JOINT. NO ACUTE PROCESS OF THE RIGHT HIP. JOB NUMBER: [id number] [facility]
== END 2017-02-18 14:11 | disposition home health service (06) ==
LOC: ER 03:58 → MEDSURG 07:10
PROVIDERS: ADMIT Family Medicine; ATTEND Family Medicine
DX: R07.9 Chest pain, unspecified (principal); I48.2 Chronic atrial fibrillation; Z79.01 Long term (current) use of anticoagulants; C15.9 Malignant neoplasm of esophagus, unspecified; M54.5 Low back pain; M25.552 Pain in left hip; M25.551 Pain in right hip; N40.0 Benign prostatic hyperplasia without lower urinary tract symptoms
CPT/HCPCS: 93041; 99285 ×2; 96376; 94760; 96365; 85025; 85610 ×2; 82553; 84484; 80048 ×2; 80162; 85379; 85027; 83880; 72110; 73521; 71275; 94640 ×3; 93005 ×2; 93010 ×2; G0378 ×2; Q9967; J7512; J2270; G8978; G8979; G8980; G8987; G8988; G8989; 97166; 99217; 99220